=== PATIENT | female | born 1985 | race Caucasian/White ===

== ENCOUNTER 2017-07-09 21:34 | Emergency (ER) | payer MEDICAID ==
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
[2017-07-09 22:29] LABS: CHLORIDE,CL 102 mmol/L (98-107); SODIUM,NA 140 mmol/L (136-145)
[2017-07-10 02:57] VITALS: BP 103/75
== END 2017-07-09 23:45 | disposition home or self-care (01) ==
LOC: LL.ED 21:34
DX: S80.11XA Contusion of right lower leg, initial encounter (principal); S80.12XA Contusion of left lower leg, initial encounter; S80.211A Abrasion, right knee, initial encounter; S90.812A Abrasion, left foot, initial encounter; F17.210 Nicotine dependence, cigarettes, uncomplicated; Z88.8 Allergy status to other drugs, medicaments and biological substances; Y04.0XXA Assault by unarmed brawl or fight, initial encounter
CPT/HCPCS: 36415; 80048; 85025; 85379; 99283

== ENCOUNTER 2017-11-26 13:55 | Emergency (ER) | payer MEDICAID ==
[2017-11-26 14:00] VITALS: BP 97/62
[2017-11-26] MEDS ORDERED: Sodium Chloride 0.9% 10 ML Syringe FLUSH PRN (14:28)
[2017-11-26] MEDS ORDERED: Ondansetron 4 MG/2 ML SDV IVPUSH ONE (14:30)
[2017-11-26] MEDS ORDERED: Sodium Chloride 0.9% 1,000 ML IV SCH (14:30)
[2017-11-26 14:59] LABS: CHLORIDE,CL 100 mmol/L (98-107); SODIUM,NA 138 mmol/L (136-145)
--- NOTE | 2017-11-26 15:53 | EDM.PDOC ---
ED HPI GENERAL MEDICAL PROBLEM - General Chief Complaint: General Stated Complaint: N/V, Fever Time Seen by Provider: 11/26/17 14:00 Source of Information: Reports: Patient History Limitations: Reports: No Limitations - History of Present Illness INITIAL COMMENTS - FREE TEXT/NARRATIVE: Patient is seen with 3 days history of nausea vomiting fever and abdominal cramping she states that she recently started working at [employer]. 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, Neurological History: Reports: Migraines Psychiatric History: Reports: Anxiety - Past Surgical History Cardiovascular Surgical History: Reports: Vascular Surgery GI Surgical History: Reports: Hernia Repair/Other Female Surgical History: Reports: Section, Tubal Ligation Musculoskeletal Surgical History: Reports: Arthroscopic Procedure Social & Family History - Family History Cardiac: Reports: Aneurysm, Heart Valve Replacement Respiratory: Reports: None GI: Reports: None - Tobacco Use Smoking Status *Q: Current Every Day Smoker Years of Tobacco use: 8 Packs/Tins Daily: 0.5 ED ROS GENERAL - Review of Systems Review Of Systems: See Below Constitutional: Reports: Fever, Chills HEENT: Reports: No Symptoms Respiratory: Reports: No Symptoms Cardiovascular: Reports: No Symptoms Endocrine: Reports: No Symptoms GI/Abdominal: Reports: Abdominal Pain : Reports: No Symptoms Musculoskeletal: Reports: No Symptoms Skin: Reports: No Symptoms ED EXAM, GENERAL - Physical Exam Exam: See Below Exam Limited By: No Limitations General Appearance: Alert, WD/WN, No Apparent Distress Ears: Normal External Exam, Normal Canal, Hearing Grossly Normal, Normal TMs Nose: Normal Inspection, Normal Mucosa, No Blood Throat/Mouth: Normal Inspection, Normal Lips, Normal Teeth, Normal Gums, Normal Oropharynx, Normal Voice, No Airway Compromise Head: Atraumatic, Normocephalic Neck: Normal Inspection, Supple, Non-Tender, Full Range of Motion Respiratory/Chest: No Respiratory Distress, Lungs Clear, Normal Breath Sounds, No Accessory Muscle Use, Chest Non-Tender Cardiovascular: Normal Peripheral Pulses, Regular Rate, Rhythm, No Edema, No Gallop, No JVD, No Murmur, No Rub GI/Abdominal: Normal Bowel Sounds, Guarding, Tender (Female) Exam: Normal External Exam, Normal Speculum Exam, Normal Bimanual Exam Rectal (Female) Exam: Deferred Back Exam: Normal Inspection, Full Range of Motion, NT Extremities: Normal Inspection, Normal Range of Motion, Non-Tender, Normal Capillary Refill, No Pedal Edema Neurological: Alert, Oriented, CN II-XII Intact, Normal Cognition, Normal Gait, Normal Reflexes, No Motor/Sensory Deficits Course - Vital Signs Last Recorded V/S: Last Vital Signs Temp 97.7 F 11/26/17 13:55 Pulse 96 11/26/17 13:55 Resp 16 11/26/17 13:55 BP 97/62 11/26/17 13:55 Pulse Ox 100 11/26/17 13:55 - Orders/Labs/Meds Orders: Active Orders 24 hr Category Date Time Status STOOL CULTURE/SHIGA TOXIN [MREF] Stat Lab 11/26/17 15:15 Received Sodium Chloride 0.9% [Normal Saline] 1,000 ml Med 11/26/17 14:30 Active IV ASDIRECTED Sodium Chloride 0.9% [Saline Flush] Med 11/26/17 14:28 Active 10 ml FLUSH ASDIRECTED PRN Saline Lock Insert [OM.PC] Stat Oth 11/26/17 14:29 Ordered Medication Orders Sodium Chloride (Normal Saline) 1,000 mls @ 999 mls/hr IV ASDIRECTED SELVIN Last Admin: 11/26/17 15:06 Dose: 999 mls/hr Sodium Chloride (Saline Flush) 10 ml FLUSH ASDIRECTED PRN PRN Reason: Keep Vein Open Labs: Laboratory Tests 11/26/17 11/26/17 Range/Units 14:39 14:39 WBC 6.2 (4.0-10.2) K/uL RBC 5.28 H (3.77-5.09) M/uL Hgb 15.1 (11.7-15.5) g/dL Hct 43.7 (34.0-46.0) % MCV 82.8 L D (84.0-98.0) fL MCH 28.6 (28.2-33.3) pg MCHC 34.6 (31.7-36.0) g/dL RDW 13.9 (11.2-14.1) % Plt Count 228 D (150-350) K/uL Neut % (Auto) 63.5 (45.0-80.0) % Lymph % (Auto) 24.3 (10.0-50.0) % [place] % (Auto) 11.5 (2.0-14.0) % Eos % (Auto) 0.5 (0.0-5.0) % Baso % (Auto) 0.2 (0.0-2.0) % Neut # (Auto) 3.93 (1.40-7.00) K/uL Lymph # (Auto) 1.50 (0.50-3.50) K/uL [place] # (Auto) 0.71 (0.00-1.00) K/uL Eos # (Auto) 0.03 (0.00-0.50) K/uL Baso # (Auto) 0.01 (0.00-0.20) K/uL Sodium 138 (136-145) mmol/L Potassium 3.4 L (3.5-5.1) mmol/L Chloride 100 (98-107) mmol/L Carbon Dioxide 31.6 (21.0-32.0) mmol/L BUN 10 (7-18) mg/dL Creatinine 0.85 (0.51-1.17) mg/dL Est Cr Clr Drug Dosing 87.30 mL/min Estimated GFR (MDRD) > 60 mL/min Glucose 119 H (74-106) mg/dL Calcium 8.9 (8.5-10.1) mg/dL Meds: Medications Generic Name Dose Route Start Last Admin Trade Name Freq PRN Reason Stop Dose Admin Sodium Chloride 1,000 mls @ 999 mls/hr 11/26/17 14:30 11/26/17 15:06 Normal Saline IV 999 mls/hr ASDIRECTED SELVIN Administration Sodium Chloride 10 ml 11/26/17 14:28 Saline Flush FLUSH ASDIRECTED PRN Keep Vein Open Discontinued Medications Generic Name Dose Route Start Last Admin Trade Name Nathaniel PRN Reason Stop Dose Admin Ondansetron HCl 4 mg 11/26/17 14:30 11/26/17 15:08 Zofran IVPUSH 11/26/17 14:31 4 mg ONETIME ONE Administration Departure - Departure Time of Disposition: 15:53 Disposition: Home, Self-Care 01 Condition: Fair Clinical Impression: Viral gastroenteritis - Discharge Information Referrals: Jared Jeffrey PA-C [Primary Care Provider] - Care Plan Goals: Patient will need to take oral fluids stool samples obtained we'll call with results rest for the next 24 hours and return or call with any problems - My Orders Last 24 Hours: My Active Orders 11/26/17 14:28 Sodium Chloride 0.9% [Saline Flush] 10 ml FLUSH ASDIRECTED PRN 11/26/17 14:29 Saline Lock Insert [OM.PC] Stat 11/26/17 14:30 Sodium Chloride 0.9% [Normal Saline] 1,000 ml IV ASDIRECTED 11/26/17 15:15 STOOL CULTURE/SHIGA TOXIN [MREF] Stat - Assessment/Plan Last 24 Hours: My Active Orders 11/26/17 14:28 Sodium Chloride 0.9% [Saline Flush] 10 ml FLUSH ASDIRECTED PRN 11/26/17 14:29 Saline Lock Insert [OM.PC] Stat 11/26/17 14:30 Sodium Chloride 0.9% [Normal Saline] 1,000 ml IV ASDIRECTED 11/26/17 15:15 STOOL CULTURE/SHIGA TOXIN [MREF] Stat
== END 2017-11-26 16:50 | disposition home or self-care (01) ==
LOC: LL.ED 13:55
DX: A08.4 Viral intestinal infection, unspecified (principal); F17.210 Nicotine dependence, cigarettes, uncomplicated; Z88.8 Allergy status to other drugs, medicaments and biological substances
CPT/HCPCS: 36415; 80048; 82272; 85025; 87045; 87046; 87899; 96361; 96374; 99284; J2405; J7030

== ENCOUNTER 2017-11-30 03:29 | Inpatient (IN) | payer MEDICAID ==
--- NOTE | 2017-11-30 03:58 | EDM.PDOC ---
ED HPI GENERAL MEDICAL PROBLEM - General Chief Complaint: Gastrointestinal Problem Stated Complaint: Nausea, vomiting, diarrhea Time Seen by Provider: 11/30/17 03:50 Source of Information: Reports: Patient, Old Records ([facility]. No paper hospital chart available.) History Limitations: Reports: No Limitations - History of Present Illness INITIAL COMMENTS - FREE TEXT/NARRATIVE: The patient was brought to the emergency room via private automobile by her ex- for evaluation of refractory and progressive nausea, emesis, diarrhea during the last week with no known exposure to infection or food poisoning. The patient was evaluated in this facility on 11/26 with negative Hemoccult and IV fluids given at that time. Patient has had loose watery stools on almost an hourly basis during the last few days with 5 episodes of emesis during the night. Symptoms have been refractory to OTC to this small. She did take Tylenol yesterday morning with maximum fever of 103 3 days ago. Some anorexia with 6/ 10 diffuse abdominal cramping, however no hematemesis, etc. Onset: Gradual Onset Date: 11/23/17 Duration: Constant, Getting Worse Location: Reports: Abdomen, Generalized. Denies: Head, Face, Neck, Chest, Back , Pelvis, Upper Extremity, Left, Upper Extremity, Right, Lower Extremity, Left, Lower Extremity, Right, Radiates to Quality: Reports: Same as Previous Episode, Other (Cramping) Severity: Moderate Improves with: Reports: None Worsens with: Reports: None Context: Reports: Other (As above). Denies: Sick Contact Associated Symptoms: Reports: Fever/Chills, Loss of Appetite, Nausea/Vomiting, Weakness (Generalized secondary to current infection). 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 Denies: Allergic Rhinitis, Hard of Hearing, Impaired Vision, Retinal Detachment Other HEENT History: Nasal fracture in 2008 requiring surgery as below Cardiovascular History: Reports: Syncope. Denies: Afib, Aneurysm, Arrhythmia, Blood Clots/VTE/DVT, CAD, Heart Murmur, High Cholesterol, Hypertension, MT Other Cardiovascular History: Orthostatic hypotension/syncopal episode in 2016 secondary to dehydration. History of hypotension Respiratory History: Reports: Intubation, Previous. Denies: Asthma, COPD, Intubation, Difficult, Pneumothorax, Sleep Apnea Gastrointestinal History: Reports: GERD. Denies: Celiac Disease, Cholelithiasis , Fecal Incontinence, GI Bleed, Hepatitis, Inflammatory Bowel Disease, Irritable Bowel Syndrome, Jaundice, Pancreatitis, PUD Genitourinary History: Reports: UTI, Recurrent. 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 Very irregular menses since uterine ablation frequent spotting including currently. Musculoskeletal History: Reports: Arthritis, Back Pain, Chronic, Fracture, Osteoarthritis, Other (See Below). Denies: Amputation, Gout, Neck Pain, Chronic , RA, SLE Other Musculoskeletal History: Proximal phalangeal fracture of digit #2 at age 5 Neurological History: Reports: Concussion, Headaches, Chronic, Head Trauma, Migraines, Other (See Below). Denies: Cerebral Aneurysms, CVA, MS, Neuropathy, Peripheral, Parkinson's, Seizure, TIA Other Neuro History: Concussion in July 2017 Psychiatric History: Reports: Addiction, Anxiety, Depression, Other (See Below) . Denies: Abuse, Victim of, ADD, ADHD, Psych Hospitalization(s), PTSD, Suicide Attempt, Suicidal Ideation Other Psychiatric History: Illicit drug use as below Endocrine/Metabolic History: Reports: None. Denies: Diabetes, Gestational, Diabetes, Type I, Diabetes, Type II, Hypothyroidism, IDDM, Multinodular Thyroid Hematologic History: Reports: Anemia, Iron Deficiency, Other (See Below). Denies: Blood Transfusion(s) Other Hematologic History: Anemia of and Immunologic History: Reports: None. Denies: AIDS, HIV, SLE Oncologic (Cancer) History: Reports: Cervix, Other (See Below). Denies: Basal Cell Carcinoma, Hodgkin's Lymphoma, Leukemia, Lymphoma, Malignant Melanoma, Non- Hodgkin's Lymphoma, Squamous Cell Carcinoma, Uterine Other Oncologic History: Precancerous Pap smears at age 15 requiring LEEP as below Dermatologic History: Reports: None. Denies: Eczema, Psoriasis - Infectious Disease History Infectious Disease History: Reports: Chicken Pox, Human Papilloma Virus (HPV) ( With abnormal Pap smear as above), Mononucleosis (Age 10). Denies: C-Difficile , Measles, Meningitis, MRSA, Mumps, Pertussis (Whooping Cough), Rheumatic Fever , Rubella, Scarlet Fever, Shingles, TB, VRE - Past Surgical History Head Surgeries/Procedures: Reports: None HEENT Surgical History: Reports: Naso-Sinus Surgery, Oral Surgery, Other (See Below). Denies: Adenoidectomy, Eye Surgery, Laser Surgery, LASIK, Myringotomy w Tube(s), Tonsillectomy Other HEENT Surgeries/Procedures: [place] teeth extraction 4 at age 15. Nasal septum deviation repair with turbinate revision in 2009 Cardiovascular Surgical History: Reports: Varicose Other Cardiovascular Surgeries/Procedures: Radiofrequency ablation of varicose veins the legs bilaterally in 2014 Respiratory Surgical History: Reports: None. Denies: Thoracentesis GI Surgical History: Reports: Hernia, Abdominal, Other (See Below). Denies: Appendectomy, Cholecystectomy, Colonoscopy, EGD, Hernia, Inguinal, Hernia Repair /Other Other GI Surgeries/Procedures: Umbilical hernia repair in 2012 Female Surgical History: Reports: Breast Implant, Breast Reconstruction, Section, Cystoscopy, LEEP, Tubal Ligation, Other (See Below). Denies: D&C, Hysterectomy, Salpingo-Oophorectomy Other Female Surgeries/Procedures: C-sections 4 as above. Bilateral tubal ligation at age 29. LEEP secondary to cervical dysplasia at age 15. Cystoscopy with urethral meatotomy 2011 with previous multiple urethral dilatations. Uterine ablation in 2016 secondary to dysfunctional uterine bleeding. Bilateral breast augmentation 2003. Endocrine Surgical History: Reports: None. Denies: Thyroid Biopsy Neurological Surgical History: Denies: C-Spine, Discectomy, Laminectomy, Lumbar Spine, Sacral Spine, Spinal Fusion, Vertebroplasty Musculoskeletal Surgical History: Reports: Arthroscopic Procedure, Shoulder Surgery, Other (See Below). Denies: Arthroscopic Knee, Carpal Tunnel, Ganglion Cyst, Joint Replacement, ORIF Other Musculoskeletal Surgeries/Procedures:: Right arthroscopic surgery for labrum repair in 2012 Oncologic Surgical History: Reports: None Dermatological Surgical History: Reports: None - Past Imaging History Past Imaging History: Reports: Mammogram (Last 2015), Ultrasound (Multiple Ob Ultrasounds) Social & Family History - Family History HEENT: Reports: None. Denies: Glaucoma, Macular Degeneration, Retinal Detachment Cardiac: Reports: AICD, Aneurysm, Arrhythmia, Bypass, CAD, Cardiomyopathy, Heart Failure, Heart Murmur, Heart Valve Replacement, High Cholesterol, Hypertension, MT, Pacemaker, Stent, Syncope, Other (See Below). Denies: Blood Clots/VTE/DVT Other Cardiac Family History: Maternal grandfather with recurrent MT initially at age 55 with CABG 3 at that time with subsequent pacemaker, AICD, PTCA/stents , and artificial heart valves with history of hypertension and hyperlipidemia. Hyperlipidemia in mother and maternal grandmother. Hypertension in maternal grandmother. Maternal grandfather with syncopal episodes and AAA. Maternal grandmother with DVTs Respiratory: Reports: None. Denies: Asthma, COPD, PE, Pneumothorax, Sleep Apnea GI: Reports: None, Celiac Disease, Irritable Bowel Syndrome, Other (See Below). Denies: Colon Polyps, GERD, GI bleed, PUD Other GI Family History: Maternal grandfather with cholecystectomy. Maternal grandmother with celiac disease and IBS. : Reports: Renal Disease/Insufficiency, Other (See Below). Denies: Dialysis, Renal Calculus Other Family History: Maternal grandfather with renal insufficiency OBGYN: Reports: None. Denies: Endometriosis, Recurrent Spontaneous Musculoskeletal: Reports: None. Denies: Gout, RA, SLE Neurological: Reports: CVA, Migraines, Other (See Below). Denies: Alzheimers Disease, Cerebral Aneurysms, Dementia, Seizure, TIA Other Neurological Family History: Migraine headaches in mother and maternal grandmother. Maternal grandfather with recurrent CVAs Psychiatric: Reports: ADD, ADHD, Anxiety, Other (See Below). Denies: Abuse, Victim of, Depression, Psych Hospitalization(s), PTSD, Suicide Attempt Other Psychiatric Family History: Son with ADHD and autism. Daughter with anxiety. 2 brothers with ADHD Endocrine/Metabolic: Reports: Diabetes, type II, Hypothyroidism, IDDM, Multinodular Thyroid, Other (See Below). Denies: Diabetes, Type I Other Endocrine/Metabolic Family History: Maternal uncle with thyroidectomy secondary to goiter. Maternal grandmother and maternal aunt with hypothyroidism. Paternal grandfather with IDDM Hematologic: Denies: Anemia, SLE, Transfusion Reaction Immunologic: Reports: None. Denies: AIDS, HIV, SLE Dermatologic: Reports: None. Denies: Eczema, Psoriasis Oncologic: Reports: Metastatic, Skin, Other (See Below). Denies: Breast, Colon , Hodgkin's Lymphoma, Leukemia, Lymphoma, Non-Hodgkin's Lymphoma, Ovarian, Uterine Other Oncologic Family History: Maternal great grandmother with unknown type of fatal metastatic cancer in her 40s. Maternal grandfather with melanoma. - Tobacco Use Smoking Status *Q: Current Every Day Smoker Tobacco Use Within Last Twelve Months: Cigarettes Years of Tobacco use: 22 Packs/Tins Daily: 0.5 Packs/Tins Daily Comment: Smoking at age 10 with maximum use of one pack per day Used Tobacco, but Quit: Yes Smoking Cessation Information Provided To Patient: Yes Second Hand Smoke Exposure: No Second Hand Smoke Education Provided: No - Caffeine Use Caffeine Use: Reports: Coffee (6 cups per day), Soda (1 soda per day), Tea (2 cups per week). Denies: Energy Drinks - Alcohol Use Alcohol Use History: Yes Days Per Week of Alcohol Use: 0 (No previous DWIs, problems with alcohol abuse, etc.) Number of Drinks Per Day: 2 (Usually mixed drinks every couple of weeks) Total Drinks Per Week: 0 Alcohol Use in Last Twelve Months: Yes Alcohol Use Frequency: Socially - Recreational Drug Use Recreational Drug Use: Yes Drug Use in Last 12 Months: Yes Recreational Drug Type: Reports: Cocaine (Cocaine since her 20s with last use on 08/09/17), Marijuana/Hashish (Marijuana use between ages 14 and 18). Denies: Amphetamines (Speed), Heroin, Inhalants (Glues, Solvents, Aerosols), LSD (Acid) , Methamphetamine, Morphine, Oxycodone - Living Situation & Occupation Living situation: Reports: (2009, 4 children, currently in divorce proceedings) Occupation: Employed ([employer] about to be employed at [employer] in [place]) ED ROS GENERAL - Review of Systems Review Of Systems: See Below Constitutional: Reports: Fever, Chills, Weakness, Decreased Appetite. Denies: Diaphoresis, Weight Loss HEENT: Reports: No Symptoms. Denies: Contact Lenses, Dental Pain, Ear Discharge , Ear Pain, Glasses, Nosebleed, Rhinitis, Sinus Problem, Throat Pain, Throat Swelling, Vertigo, Vision Change Respiratory: Reports: No Symptoms. Denies: Shortness of Breath, Wheezing, Pleuritic Chest Pain, Cough Cardiovascular: Reports: Lightheadedness. Denies: Chest Pain, Blood Pressure Problem, Dyspnea on Exertion, Edema, Orthopnea, Palpitations, PND, Syncope Endocrine: Reports: No Symptoms. Denies: Fatigue GI/Abdominal: Reports: Abdominal Pain, Anorexia, Diarrhea, Decreased Appetite, Nausea, Stool Incontinence, Vomiting. Denies: Black Stool, Bloody Stool, Constipation, Difficulty Swallowing, Distension, Flatus, Hematemesis, Hematochezia, Melena, Mucous in Stool : Reports: Frequency, Irregular Menses (Current menses), Urgency. Denies: Discharge, Dysuria, Flank Pain, Hematuria, Incontinence, Pain, Urinary Retention Musculoskeletal: Reports: No Symptoms. Denies: Neck Pain, Shoulder Pain, Arm Pain, Back Pain, Leg Pain Skin: Reports: No Symptoms. Denies: Cyanosis, Pallor, Diaphoresis, Bruising, Wound Neurological: Reports: Dizziness, Weakness. Denies: Confusion, Headache, Numbness, Paresthesia, Seizure, Tingling Psychiatric: Reports: No Symptoms. Denies: Agitation, Anxiety, Confusion, Depression, Hallucinations Hematologic/Lymphatic: Reports: No Symptoms Immunologic: Reports: No Symptoms ED EXAM, GI/ABD - Physical Exam Exam: See Below Exam Limited By: No Limitations General Appearance: Alert, WD/WN, No Apparent Distress, Anxious (Mild) Eyes: Bilateral: Normal Appearance (No nystagmus), EOMI (PERRLA) Ears: Normal External Exam, Normal Canal, Hearing Grossly Normal, Normal TMs Nose: Normal Inspection, Normal Mucosa, No Blood Throat/Mouth: Normal Lips, Normal Teeth, Normal Gums, Normal Voice, No Airway Compromise. No: Normal Oropharynx (Dry oral mucosa), Dysphagia, Perioral Cyanosis Head: Atraumatic, Normocephalic. No: Facial Swelling, Facial Tenderness, Sinus Tenderness Neck: Normal Inspection, Supple, Non-Tender, Full Range of Motion. No: Carotid Bruit, Lymphadenopathy (L), Lymphadenopathy (R), Thyromegaly Respiratory/Chest: No Respiratory Distress, Lungs Clear, Normal Breath Sounds, No Accessory Muscle Use, Chest Non-Tender. No: Pleural Rub, Retractions Cardiovascular: Normal Peripheral Pulses, Regular Rate, Rhythm, No Edema, No Gallop, No JVD, No Murmur, No Rub. No: Gallop/S3, Gallop/S4, Friction Rub GI/Abdominal Exam: No Organomegaly, No Distention, No Abnormal Bruit, No Mass, Tender (Mild diffuse palpation.), Abnormal Bowel Sounds (Mildly increased however not high-pitched in nature). No: Guarding, Rebound (Female) Exam: Deferred Rectal (Female) Exam: Deferred Back Exam: Normal Inspection, Full Range of Motion. No: CVA Tenderness (L), CVA Tenderness (R), Muscle Spasm Extremities: Normal Inspection, Normal Range of Motion, Non-Tender, Normal Capillary Refill, No Pedal Edema Neurological: Alert, Oriented, CN II-XII Intact, Normal Cognition, Normal Gait, Normal Reflexes (Negative Babinski's), No Motor/Sensory Deficits Psychiatric: Anxious (Mild), Depressed Mood (Mild). No: Tearful Skin Exam: Warm, Dry, Intact, Normal Color, No Rash. No: Diaphoretic, Ecchymosis, Jaundice, Pallor, Petechiae, Wound/Incision Lymphatic: No Adenopathy Course - Vital Signs Last Recorded V/S: Last Vital Signs Temp 38.1 C 11/30/17 05:12 Pulse 93 11/30/17 05:12 Resp 18 11/30/17 05:12 BP 118/62 11/30/17 05:12 Pulse Ox 100 11/30/17 05:12 Vital Signs - 24 hr 11/30/17 03:50 Temperature [ 37.3 C Temporal] Pulse, 92 Peripheral [ Pulse Oximetry] Respiratory 16 Rate Blood Pressure 94/50 L [Right Upper Arm] O2 Sat by Pulse 100 Oximetry - Orders/Labs/Meds Orders: Active Orders 24 hr Category Date Time Status Peripheral IV Care [RC] . DIRECTED Care 11/30/17 03:59 Active Sodium Chloride 0.9% [Saline Flush] Med 11/30/17 03:58 Active 10 ml FLUSH ASDIRECTED PRN Obtain Past Medical Record [OM.PC] Routine Oth 11/30/17 03:58 Active Peripheral IV Insertion Adult [OM.PC] Routine Oth 11/30/17 03:58 Ordered Medication Orders Acetaminophen (Tylenol) 650 mg PO Q4H PRN PRN Reason: Pain (Mild 1-3)/fever Last Admin: 11/30/17 05:16 Dose: 650 mg Sodium Chloride (Saline Flush) 10 ml FLUSH ASDIRECTED PRN PRN Reason: Keep Vein Open Last Admin: 11/30/17 05:07 Dose: 10 ml Labs: Shortly after admission Meds: Medications Generic Name Dose Route Start Last Admin Trade Name Freq PRN Reason Stop Dose Admin Acetaminophen 650 mg 11/30/17 05:14 11/30/17 05:16 Tylenol PO 650 mg Q4H PRN Administration Pain (Mild 1-3)/fever Sodium Chloride 10 ml 11/30/17 03:58 11/30/17 05:07 Saline Flush FLUSH 10 ml ASDIRECTED PRN Administration Keep Vein Open Discontinued Medications Generic Name Dose Route Start Last Admin Trade Name Freq PRN Reason Stop Dose Admin Famotidine 40 mg 11/30/17 05:01 11/30/17 05:07 Pepcid IVPUSH 11/30/17 05:02 40 mg ONETIME ONE Administration Lactated Ringer's 1,000 mls @ 999 mls/hr 11/30/17 03:59 11/30/17 04:08 Ringers, Lactated IV 11/30/17 04:59 999 mls/hr .BOLUS ONE Administration Loperamide HCl 4 mg 11/30/17 05:00 11/30/17 05:07 Imodium Ad PO 11/30/17 05:01 4 mg ONETIME ONE Administration Metoclopramide HCl 10 mg 11/30/17 04:50 11/30/17 05:04 Reglan IVPUSH 11/30/17 04:51 10 mg ONETIME ONE Administration - Radiology Interpretation Free Text/Narrative:: Shortly after admission Departure - Departure Time of Disposition: 05:20 Disposition: Admitted As Inpatient 64 Condition: Good Clinical Impression: Abdominal pain, Nausea and vomiting, Dehydration, Tobacco abuse counseling, Illicit drug use, Peptic reflux disease, Mixed anxiety depressive disorder - Discharge Information - Problem List & Annotations (1) Abdominal pain SNOMED Code(s): 67459071 Code(s): R10.9 - UNSPECIFIED ABDOMINAL PAIN Status: Acute Priority: High Current Visit: Yes Onset Date: ~11/23/17 Annotation/Comment:: Secondary to refractory symptoms patient will be admitted to acute care. IV lactated Ringer bolus initiated in the emergency room. Urine specimen for UA and urine culture collected in the emergency room. In addition, stool specimen also collected for Hemoccult C. difficile, ova, parasites. High-dose IV Pepcid given in the emergency room with additional IV Protonix shortly after admission. IV Reglan and oral Imodium also given. Suspect refractory viral gastroenteritis with no known exposure to infection or food poisoning. Blood work and x-rays to be conducted shortly after admission. Qualifiers: Abdominal location: generalized Qualified Code(s): R10.84 - Generalized abdominal pain (2) Nausea and vomiting SNOMED Code(s): 04439493 Code(s): R11.2 - NAUSEA WITH VOMITING, UNSPECIFIED Status: Acute Priority : High Current Visit: Yes Onset Date: ~11/23/17 Annotation/Comment:: As above Qualifiers: Vomiting type: unspecified Vomiting Intractability: non-intractable Qualified Code(s): R11.2 - Nausea with vomiting, unspecified (3) Dehydration SNOMED Code(s): 79405157 Code(s): E86.0 - DEHYDRATION Status: Acute Priority: High Current Visit : Yes Onset Date: 11/30/17 Annotation/Comment:: IV lactated Ringer's as above with continuation of IV fluids during the initial phases of hospitalization (4) Peptic reflux disease SNOMED Code(s): 053362351 Code(s): K21.9 - GASTRO-ESOPHAGEAL REFLUX DISEASE WITHOUT ESOPHAGITIS Status: Chronic Priority: Medium Current Visit: Yes Annotation/Comment:: As above (5) Illicit drug use SNOMED Code(s): 040473201 Code(s): F19.90 - OTHER PSYCHOACTIVE SUBSTANCE USE, UNSPECIFIED, UNCOMPLICATED Status: Chronic Priority: Medium Current Visit: Yes Annotation/Comment:: Discontinuation advisable (6) Mixed anxiety depressive disorder SNOMED Code(s): 983133877 Code(s): F41.8 - OTHER SPECIFIED ANXIETY DISORDERS Status: Chronic Priority: Medium Current Visit: Yes Annotation/Comment:: Moderate control by clinical exam. Continue to observe closely by her regular providers (7) Tobacco abuse counseling SNOMED Code(s): 699907947, 023258194, [id number] Code(s): Z71.6 - TOBACCO ABUSE COUNSELING Status: Chronic Priority: Medium Current Visit: Yes Annotation/Comment:: Stop all tobacco use LILO as directed/per provided information and consider contacting [facility], etc.. Tobacco cessation information can be given at discharge - Problem List Review Problem List Initiated/Reviewed/Updated: Yes - My Orders Last 24 Hours: My Active Orders 11/30/17 03:58 Sodium Chloride 0.9% [Saline Flush] 10 ml FLUSH ASDIRECTED PRN Obtain Past Medical Record [OM.PC] Routine Peripheral IV Insertion Adult [OM.PC] Routine 11/30/17 03:59 Peripheral IV Care [RC] . DIRECTED - Assessment/Plan Admission H&P: Please use this note as an admission H&P Last 24 Hours: My Active Orders 11/30/17 03:58 Sodium Chloride 0.9% [Saline Flush] 10 ml FLUSH ASDIRECTED PRN Obtain Past Medical Record [OM.PC] Routine Peripheral IV Insertion Adult [OM.PC] Routine 11/30/17 03:59 Peripheral IV Care [RC] . DIRECTED Assessment:: As above Plan: As above. Extensive precautions were given to the patient, who is in agreement with the treatment plan. The patient will require about 3-4 days of inpatient/ acute care secondary to multiple health problems as above.
[2017-11-30] MEDS ORDERED: Lactated Ringers 1,000 ML IV ONE ×2 (03:59→13:36)
[2017-11-30] MEDS ORDERED: Acetaminophen 650 MG Supp RECTAL PRN (04:49)
[2017-11-30] MEDS ORDERED: Metoclopramide 10 MG/2 ML SDV IVPUSH ONE (04:50)
[2017-11-30] MEDS ORDERED: Loperamide 1 MG/5 ML Soln 5 ML UD Cup PO ONE (04:51)
[2017-11-30] MEDS ORDERED: Loperamide 2 MG Tab PO ONE (05:00)
[2017-11-30] MEDS ORDERED: Famotidine 20 MG/2 ML SDV IVPUSH ONE (05:01)
[2017-11-30] MEDS: Sodium Chloride 0.9% 10 ML Syringe FLUSH PRN ×6 (05:07→16:37)
[2017-11-30] MEDS: Acetaminophen 325 MG Tab PO PRN ×3 (05:16→22:06)
[2017-11-30] MEDS ORDERED: Ondansetron 4 MG/2 ML SDV IVPUSH PRN (05:23)
[2017-11-30] MEDS: Ciprofloxacin in D5W 200 MG in Premix Bag 1 BAG IV SCH ×4 (05:39→16:32)
[2017-11-30] MEDS: Pantoprazole 40 MG Vial IVPUSH SCH ×2 (06:50→16:32)
[2017-11-30] MEDS: metroNIDAZOLE/Normal Saline 500 MG in Premix Bag 1 BAG IV SCH ×3 (06:50→20:51)
[2017-11-30 07:40] LABS: CHLORIDE,CL 103 mmol/L (98-107); SODIUM,NA 140 mmol/L (136-145)
[2017-11-30] MEDS: D5 1/2 NS w/ 20 mEq/L KCl 1,000 ML IV SCH ×2 (08:10→21:04)
[2017-11-30] MEDS: FLUoxetine 20 MG Cap PO SCH (08:14)
[2017-11-30] MEDS: Sodium Chloride 0.9% 10 ML Syringe FLUSH SCH ×2 (08:14→20:58)
--- NOTE | 2017-11-30 08:55 | PCM.SN ---
- Free Text/Narrative Note: Blood work and abdominal x-rays from earlier this morning were reviewed. Acute abdominal x-rays shows evidence of moderate pulmonary obstructive disease without cardiomegaly, CHF, pulmonary infiltrates, free air, ileus, obstruction, pneumothorax, etc.. Mildly elevated right hemidiaphragm with some atelectasis noted in the right middle lobe. Mildly increased nonspecific bowel gaseous pattern particularly in the colon. Blood work showed normal WBCs with mild left shift. Potassium decreased to 2.9 with initiation of additional oral potassium chloride supplementation this morning. Her albumin and total protein were also decreased with initiation of high protein Glucerna supplements on a twice a day basis this morning. Attempt to initiate bland diet this morning. UA did not show any evidence of acute infection with negative urine drug screen. Urine culture and sensitivity pending. Additional evaluation for celiac panel secondary to positive family history for celiac disease to be conducted from this mornings blood draw. Hemoccult of stool is negative with stool specimen sent out for culture, etc.. Note mildly decreased calcium and magnesium levels with no initiation of magnesium oxide therapy for now secondary to patient's diarrhea. Gabe thomas physician assumes care in the a.m. Probable hospital discharge within the next 2-3 days.
[2017-11-30] MEDS: Potassium Chloride 20 MEQ Tab.ER PO SCH ×3 (09:01→17:38)
[2017-11-30] MEDS: Loperamide 2 MG Tab PO PRN ×2 (15:23→22:06)
[2017-11-30] MEDS: Temazepam 15 MG Cap PO PRN (22:06)
[2017-12-01] MEDS: Temazepam 15 MG Cap PO PRN ×2 (04:05→20:42)
[2017-12-01] MEDS: metroNIDAZOLE/Normal Saline 500 MG in Premix Bag 1 BAG IV SCH ×3 (05:14→20:42)
[2017-12-01] MEDS: Ciprofloxacin in D5W 200 MG in Premix Bag 1 BAG IV SCH ×2 (05:14)
[2017-12-01] MEDS: Famotidine 20 MG/2 ML SDV IVPUSH SCH ×2 (05:14→18:01)
[2017-12-01] MEDS: Pantoprazole 40 MG Vial IVPUSH SCH ×2 (05:14→18:01)
[2017-12-01] MEDS: Sodium Chloride 0.9% 10 ML Syringe FLUSH PRN ×5 (05:15→21:59)
[2017-12-01] MEDS ORDERED: Pantoprazole 40 MG Vial IVPUSH SCH (05:23)
[2017-12-01 07:35] LABS: CHLORIDE,CL 108 mmol/L (98-107); SODIUM,NA 141 mmol/L (136-145)
[2017-12-01] MEDS: FLUoxetine 20 MG Cap PO SCH (08:16)
[2017-12-01] MEDS: Sodium Chloride 0.9% 10 ML Syringe FLUSH SCH ×2 (08:16→20:43)
[2017-12-01] MEDS: Potassium Chloride 20 MEQ Tab.ER PO SCH ×3 (08:16→18:00)
[2017-12-01] MEDS: D5 1/2 NS w/ 20 mEq/L KCl 1,000 ML IV SCH ×2 (08:22→18:15)
[2017-12-01] MEDS ORDERED: TERCONAZOLE 0.4% VAG PRN (12:35)
[2017-12-01] MEDS ORDERED: Simethicone 125 MG Tab.Chew PO PRN (14:35)
--- NOTE | 2017-12-01 18:25 | PCM.PN ---
- General Info Date of Service: 12/01/17 Admission Dx/Problem (Free Text): Nausea/vomiting/loose stools/dehydration, hypokalemia Subjective Update: Feeling improved overall. Single loose bowel movement today. No emesis at this time. Functional Status: Reports: Pain Controlled, Tolerating Diet, Ambulating, Urinating. Denies: New Symptoms - Review of Systems General: Reports: Fatigue. Denies: Fever, Appetite HEENT: Reports: No Symptoms Pulmonary: Reports: No Symptoms Cardiovascular: Reports: No Symptoms Gastrointestinal: Reports: Diarrhea, Nausea. Denies: Abdominal Pain, Vomiting Genitourinary: Reports: No Symptoms Musculoskeletal: Reports: No Symptoms Skin: Reports: No Symptoms Neurological: Reports: No Symptoms Psychiatric: Reports: No Symptoms - Patient Data Vitals - Most Recent: Last Vital Signs Temp 37.0 C 12/01/17 16:00 Pulse 77 12/01/17 16:00 Resp 16 12/01/17 12:00 BP 109/50 L 12/01/17 16:00 Pulse Ox 100 12/01/17 16:00 Weight - Most Recent: 62.006 kg I&O - Last 24 Hours: Intake & Output 12/01/17 12/01/17 12/01/17 06:59 14:59 22:59 Intake Total 1416 2259 1072 Output Total 400 1900 400 Balance 1016 139 672 Lab Results Last 24 Hours: Laboratory Results - last 24 hr 12/01/17 12/01/17 12/01/17 Range/Units 06:28 06:28 06:28 WBC 4.5 (4.0-10.2) K/uL RBC 4.01 (3.77-5.09) M/uL Hgb 11.4 L (11.7-15.5) g/dL Hct 34.3 (34.0-46.0) % MCV 85.5 (84.0-98.0) fL MCH 28.4 (28.2-33.3) pg MCHC 33.2 (31.7-36.0) g/dL RDW 13.9 (11.2-14.1) % Plt Count 301 (150-350) K/uL Neut % (Auto) 33.0 L (45.0-80.0) % Lymph % (Auto) 50.4 H (10.0-50.0) % [place] % (Auto) 13.7 (2.0-14.0) % Eos % (Auto) 2.7 (0.0-5.0) % Baso % (Auto) 0.2 (0.0-2.0) % Neut # (Auto) 1.47 (1.40-7.00) K/uL Lymph # (Auto) 2.25 (0.50-3.50) K/uL [place] # (Auto) 0.61 (0.00-1.00) K/uL Eos # (Auto) 0.12 (0.00-0.50) K/uL Baso # (Auto) 0.01 (0.00-0.20) K/uL Sodium 141 (136-145) mmol/L Potassium 3.3 L (3.5-5.1) mmol/L Chloride 108 H (98-107) mmol/L Carbon Dioxide 29.1 (21.0-32.0) mmol/L BUN 4 L (7-18) mg/dL Creatinine 0.65 (0.51-1.17) mg/dL Est Cr Clr Drug Dosing 113.52 mL/min Estimated GFR (MDRD) > 60 mL/min Glucose 85 (74-106) mg/dL Lactic Acid 0.7 (0.4-2.0) mmol/L Calcium 7.0 L (8.5-10.1) mg/dL [place] Results Last 24 Hours: Microbiology 11/30/17 04:30 Clostridium difficile (PCR) - Final Stool / Feces 11/30/17 04:30 Shiga Toxin I & II - Final Stool / Feces 11/30/17 04:30 Cryptosporidium/Giardia - Final Stool / Feces 11/30/17 04:30 Urine Culture - Preliminary Urine, Clean Catch NO GROWTH AFTER 1 DAY Med Orders - Current: Current Medications Acetaminophen (Tylenol) 650 mg PO Q4H PRN PRN Reason: Pain (Mild 1-3)/fever Last Admin: 11/30/17 22:06 Dose: 650 mg Famotidine (Pepcid) 20 mg IVPUSH Q12H [facility] Last Admin: 12/01/17 18:01 Dose: 20 mg Fluoxetine HCl (Prozac) 20 mg PO DAILY [facility] Last Admin: 12/01/17 08:16 Dose: 20 mg Potassium Chloride/Dextrose/Sod Cl (D5 1/2 Ns W/ 20 Meq/L Kcl) 1,000 mls @ 125 mls/hr IV ASDIRECTED [facility] Last Admin: 12/01/17 18:15 Dose: 125 mls/hr Metronidazole 500 mg/ Premix 100 mls @ 100 mls/hr IV Q8H [facility] Last Admin: 12/01/17 12:38 Dose: 100 mls/hr Loperamide HCl (Imodium Ad) 2 mg PO Q6H PRN PRN Reason: Diarrhea Last Admin: 11/30/17 22:06 Dose: 2 mg Ondansetron HCl (Zofran) 4 mg IVPUSH Q6H PRN PRN Reason: Nausea/Vomiting Pantoprazole Sodium (Protonix Iv) 40 mg IVPUSH Q12H [facility] Last Admin: 12/01/17 18:01 Dose: 40 mg Potassium Chloride (Klor-Con M20) 20 meq PO TID [facility] Last Admin: 12/01/17 18:00 Dose: 20 meq Simethicone (Simethicone) 125 mg PO QID PRN PRN Reason: Gas Last Admin: 12/01/17 15:55 Dose: 125 mg Sodium Chloride (Saline Flush) 10 ml FLUSH ASDIRECTED PRN PRN Reason: Keep Vein Open Last Admin: 12/01/17 18:03 Dose: 10 ml Sodium Chloride (Saline Flush) 10 ml FLUSH Q12HR [facility] Last Admin: 12/01/17 08:16 Dose: 10 ml Temazepam (Restoril) 15 mg PO DAILY@2000 PRN PRN Reason: Insomnia Last Admin: 12/01/17 04:05 Dose: 15 mg Terconazole (Terazol 7 Vaginal Crm) 0 gm VAG BEDTIME PRN PRN Reason: Itching Discontinued Medications Famotidine (Pepcid) 40 mg IVPUSH ONETIME ONE Stop: 11/30/17 05:02 Last Admin: 11/30/17 05:07 Dose: 40 mg Lactated Ringer's (Ringers, Lactated) 1,000 mls @ 999 mls/hr IV .BOLUS ONE Stop: 11/30/17 04:59 Last Admin: 11/30/17 04:08 Dose: 999 mls/hr Ciprofloxacin/Dextrose 200 mg/ (Premix) 100 mls @ 100 mls/hr IV Q12H [facility] Last Admin: 12/01/17 05:14 Dose: 100 mls/hr Lactated Ringer's (Ringers, Lactated) 1,000 mls @ 999 mls/hr IV .BOLUS ONE Stop: 11/30/17 14:36 Last Admin: 11/30/17 13:56 Dose: 999 mls/hr Loperamide HCl (Imodium Ad) 4 mg PO ONETIME ONE Stop: 11/30/17 05:01 Last Admin: 11/30/17 05:07 Dose: 4 mg Metoclopramide HCl (Reglan) 10 mg IVPUSH ONETIME ONE Stop: 11/30/17 04:51 Last Admin: 11/30/17 05:04 Dose: 10 mg Pantoprazole Sodium (Protonix Iv) 40 mg IVPUSH Q12H [facility] - Exam General: Alert, Oriented, Cooperative, No Acute Distress HEENT: Pupils Equal, Pupils Reactive, EOMI, Mucous Membr. Moist/[place] Neck: Supple Lungs: Clear to Auscultation, Normal Respiratory Effort Cardiovascular: Regular Rate, Regular Rhythm GI/Abdominal Exam: Normal Bowel Sounds, Soft, No Abnormal Bruit, Tender ( minimally uncomfortable with palpation central abdomen), Other (mild gaseous distension) (Female) Exam: Deferred Back Exam: Normal Inspection. No: CVA Tenderness (L), CVA Tenderness (R) Extremities: Normal Inspection, Normal Range of Motion, Non-Tender, No Pedal Edema, Normal Capillary Refill Peripheral Pulses: 2+: Radial (L), Radial (R), Dorsalis Pedis (L), Dorsalis Pedis (R) Skin: Warm, Dry, Intact Neurological: No New Focal Deficit Psy/Mental Status: Alert, Normal Affect, Normal Mood - Problem List & Annotations (1) Abdominal pain SNOMED Code(s): 26876595 Code(s): R10.9 - UNSPECIFIED ABDOMINAL PAIN Status: Acute Priority: High Current Visit: Yes Onset Date: ~11/23/17 Qualifiers: Abdominal location: generalized Qualified Code(s): R10.84 - Generalized abdominal pain Annotation/Comment:: Improving. No vomiting today. Single loose stool prior to rounding on patient. Urine culture collected in the emergency room unremarkable at this time. In addition, stool specimen also collected for Hemoccult C. difficile, ova, parasites unremarkable. High-dose IV Pepcid given in the emergency room with additional IV Protonix shortly after admission. IV Reglan and oral Imodium also given. Suspect refractory viral gastroenteritis with no known exposure to infection or food poisoning. Patient notes that all over her children have now had some variant of it over the past few days with loose stools/GI discomfort, and emesis. Due to negative CDiff studies/other unremarkable labs, Cipro discontinued this morning. Flagyl however has been continued for now. (2) Dehydration SNOMED Code(s): 09342410 Code(s): E86.0 - DEHYDRATION Status: Acute Priority: High Current Visit : Yes Onset Date: 11/30/17 Annotation/Comment:: IV lactated Ringer's as above with continuation of IV fluids during the initial phases of hospitalization (3) Nausea and vomiting SNOMED Code(s): 62509969 Code(s): R11.2 - NAUSEA WITH VOMITING, UNSPECIFIED Status: Acute Priority : High Current Visit: Yes Onset Date: ~11/23/17 Qualifiers: Vomiting type: unspecified Vomiting Intractability: non-intractable Qualified Code(s): R11.2 - Nausea with vomiting, unspecified Annotation/Comment:: As above (4) Illicit drug use SNOMED Code(s): 072591605 Code(s): F19.90 - OTHER PSYCHOACTIVE SUBSTANCE USE, UNSPECIFIED, UNCOMPLICATED Status: Chronic Priority: Medium Current Visit: Yes Annotation/Comment:: Discontinuation advisable (5) Mixed anxiety depressive disorder SNOMED Code(s): 922759209 Code(s): F41.8 - OTHER SPECIFIED ANXIETY DISORDERS Status: Chronic Priority: Medium Current Visit: Yes Annotation/Comment:: Moderate control by clinical exam. Continue to observe closely by her regular providers (6) Peptic reflux disease SNOMED Code(s): 863464015 Code(s): K21.9 - GASTRO-ESOPHAGEAL REFLUX DISEASE WITHOUT ESOPHAGITIS Status: Chronic Priority: Medium Current Visit: Yes Annotation/Comment:: As above (7) Tobacco abuse counseling SNOMED Code(s): 210126279, [id number], 381225827 Code(s): Z71.6 - TOBACCO ABUSE COUNSELING Status: Chronic Priority: Medium Current Visit: Yes Annotation/Comment:: Stop all tobacco use LILO as directed/per provided information and consider contacting [facility], etc.. Tobacco cessation information can be given at discharge - Problem List Review Problem List Initiated/Reviewed/Updated: Yes - My Orders Last 24 Hours: My Active Orders 12/01/17 12:35 Terconazole [Terazol 7 Vaginal Crm] 0 gm VAG BEDTIME PRN 12/01/17 14:35 Simethicone 125 mg PO QID PRN 12/02/17 05:15 BASIC METABOLIC PANEL,BMP [CHEM] AM - Assessment Assessment:: Improving overall. - Plan Plan:: Will continue IV fluids and advance diet as tolerated. Anticipate probable discharge home tomorrow morning. Repeat BMP in AM.
[2017-12-02] MEDS: Temazepam 15 MG Cap PO PRN (02:20)
[2017-12-02] MEDS: Sodium Chloride 0.9% 10 ML Syringe FLUSH PRN ×3 (02:20→05:01)
[2017-12-02] MEDS: D5 1/2 NS w/ 20 mEq/L KCl 1,000 ML IV SCH (03:49)
[2017-12-02] MEDS: metroNIDAZOLE/Normal Saline 500 MG in Premix Bag 1 BAG IV SCH (04:58)
[2017-12-02] MEDS: Pantoprazole 40 MG Vial IVPUSH SCH (04:58)
[2017-12-02] MEDS: Famotidine 20 MG/2 ML SDV IVPUSH SCH (05:00)
[2017-12-02] MEDS: Potassium Chloride 20 MEQ Tab.ER PO SCH ×2 (07:34→13:25)
[2017-12-02] MEDS: FLUoxetine 20 MG Cap PO SCH (07:34)
[2017-12-02] MEDS: Sodium Chloride 0.9% 10 ML Syringe FLUSH SCH (07:35)
[2017-12-02 07:49] LABS: CHLORIDE,CL 106 mmol/L (98-107); SODIUM,NA 139 mmol/L (136-145)
[2017-12-02 10:20] VITALS: BP 101/64
--- NOTE | 2017-12-02 10:56 | PCM.DCSUM1 ---
Discharge Summary - Hospital Course HPI Initial Comments: See emergency room note/admission H&P Brief History: See emergency room note/admission H&P - Discharge Data Discharge Date: 12/02/17 Discharge Disposition: Home, Self-Care 01 Condition: Good - Discharge Diagnosis/Problem(s) (1) Abdominal pain SNOMED Code(s): 36709625 ICD Code: R10.9 - UNSPECIFIED ABDOMINAL PAIN Status: Acute Priority: High Current Visit: Yes Onset Date: ~11/23/17 Problem Details: Resolution of diarrhea since yesterday with no bowel movement yet this morning. Persistent nonspecific diffuse generalized 7/10 abdominal pain and cramping of unknown etiology. Hemoccult and stool specimens for culture and sensitivity, etc. are all negative to this point as below. Patient is tolerating her diet well with no nausea and emesis. She has been off of school since 11/23 with school excuse provided since that time and for an additional week secondary to some persistent symptoms him although she may return earlier, if she feels better. Close follow-up by her regular provider as per discharge instructions with possible further GI workup, including EGD, colonoscopy, CT scans, abdominal ultrasounds, etc.. High-dose IV Pepcid was given in the emergency room with additional IV Protonix shortly after admission. IV Reglan and oral Imodium also given. Suspect refractory viral gastroenteritis with no known exposure to infection or food poisoning. Patient noted yesterday to the [facility] physician that all of her children have now had some variant of the same symptoms. Continue Flagyl oral regimen with additional probiotics for now. Qualifiers: Abdominal location: generalized Qualified Code(s): R10.84 - Generalized abdominal pain (2) Nausea and vomiting SNOMED Code(s): 57759595 ICD Code: R11.2 - NAUSEA WITH VOMITING, UNSPECIFIED Status: Acute Priority: High Current Visit: Yes Onset Date: ~11/23/17 Problem Details: Resolved Qualifiers: Vomiting type: unspecified Vomiting Intractability: non-intractable Qualified Code(s): R11.2 - Nausea with vomiting, unspecified (3) Dehydration SNOMED Code(s): 59026633 ICD Code: E86.0 - DEHYDRATION Status: Acute Priority: High Current Visit: Yes Onset Date: 11/30/17 Problem Details: Aggressive IV hydration during this hospitalization including 2 L boluses of lactated Ringer's and additional IV fluids. Dehydration resolved at time of discharge. (4) Peptic reflux disease SNOMED Code(s): 280252307 ICD Code: K21.9 - GASTRO-ESOPHAGEAL REFLUX DISEASE WITHOUT ESOPHAGITIS Status: Chronic Priority: Medium Current Visit: Yes Problem Details: As above (5) Illicit drug use SNOMED Code(s): 320897213 ICD Code: F19.90 - OTHER PSYCHOACTIVE SUBSTANCE USE, UNSPECIFIED, UNCOMPLICATED Status: Chronic Priority: Medium Current Visit: Yes Problem Details: Discontinuation advisable as per discharge instructions. Note negative urine drug screen on admission (6) Mixed anxiety depressive disorder SNOMED Code(s): 986061242 ICD Code: F41.8 - OTHER SPECIFIED ANXIETY DISORDERS Status: Chronic Priority: Medium Current Visit: Yes Problem Details: Moderate control by clinical exam. Continue to observe closely by her regular providers (7) Tobacco abuse counseling SNOMED Code(s): 849829263, 223788389, 050277439 ICD Code: Z71.6 - TOBACCO ABUSE COUNSELING Status: Chronic Priority: Medium Current Visit: Yes Problem Details: Stop all tobacco use LILO as directed/per provided information and consider contacting [employer] [facility], etc.. Tobacco cessation information can be given at discharge (8) Hypokalemia SNOMED Code(s): 63794471 ICD Code: E87.6 - HYPOKALEMIA Status: Acute Current Visit: Yes Onset Date: 11/30/17 Problem Details: Resolved with oral supplementation and IV fluids (9) Hypocalcemia SNOMED Code(s): 1334812 ICD Code: E83.51 - HYPOCALCEMIA Status: Acute Priority: Medium Current Visit: Yes Onset Date: 11/30/17 Problem Details: Observe for now with consideration of calcium and vitamin D supplementation depending on blood work results at time of follow-up visit - Patient Summary/Data Operative Procedure(s) Performed: None Complications: None Consults: None Labs Pending at D/C: Final urine culture and stool culture results Recommended Follow-up Testing/Procedures: As per discharge instructions Planned Operative Procedure(s) after DC: None Hospital Course: Patient was admitted to inpatient/acute care with aggressive therapy as above, including IV hydration, IV Cipro, IV Flagyl, etc. Persistent nonspecific symptoms as above with possible additional further GI workup depending on her symptoms at follow-up as per discharge instructions, etc. as above - Patient Instructions Diet: Regular Diet as Tolerated Diet, Other: [place] diet including encouragement of oral fluids such as sports drinks, et Activity: As Tolerated Driving: May Drive Today Showering/Bathing: May Shower Notify Provider of: Fever, Increased Pain, Nausea and/or Vomiting Other/Special Instructions: 1. Follow-up with your regular provider in one week with recommended repeat CBC, comprehensive metabolic panel, amylase, and lipase. Discuss possible further GI workup at that time, including colonoscopy, EGD, CT scans, abdominal ultrasounds, etc. depending on your symptoms at follow- up. 2. School Excuse-See Form. 3. Stop all tobacco use LILO as directed/per provided information and consider contacting [employer], etc.. 4. Discontinue all illicit drug use. 5. High-protein Glucerna supplements twice a day as snacks - Discharge Plan Prescriptions/Med Rec: Fluconazole [Diflucan] 150 mg PO DAILY PRN #2 tablet PRN Reason: Vaginal moniliasis Lactobacillus Combination No.8 [Adult Probiotic] 2 tab PO TID #42 capsule metroNIDAZOLE [Flagyl] 500 mg PO Q8H #21 tab Home Medications: Home Meds FLUoxetine HCl [Prozac] 20 mg PO DAILY 11/26/17 [History] Acetaminophen 650 mg PO Q4H PRN 11/30/17 [History] Ibuprofen 400 mg PO Q6H PRN 11/30/17 [History] Acetaminophen [Tylenol] 650 mg PO Q4H PRN tablet 12/02/17 [Rx] Fluconazole [Diflucan] 150 mg PO DAILY PRN #2 tablet 12/02/17 [Rx] Lactobacillus Combination No.8 [Adult Probiotic] 2 tab PO TID #42 capsule [Rx] metroNIDAZOLE [Flagyl] 500 mg PO Q8H #21 tab 12/02/17 [Rx] Forms: ED Department Discharge Referrals: Sravan Barajas MD [Family Provider] - - General Info Date of Service: 12/02/17 Admission Dx/Problem (Free Text: 1. Abdominal pain 2. Nausea/emesis 3. Dehydration Functional Status: Reports: Pain Controlled, Tolerating Diet, Ambulating, Urinating. Denies: New Symptoms, Incentive Spirometry Numeric/FACES Score: 7 (Nonspecific generalized as above) - Review of Systems General: Denies: Fever, Weakness, Fatigue, Malaise, Chills, Night Sweats, Appetite (Tolerating diet) HEENT: Reports: No Symptoms. Denies: Ear Pain, Eye Pain, Headaches, Post Nasal Drip, Sinus Congestion, Sore Throat, Rhinitis, Visual Changes Pulmonary: Reports: No Symptoms. Denies: Shortness of Breath, Pleuritic Chest Pain, Cough, Sputum, Wheezing Cardiovascular: Reports: No Symptoms. Denies: Chest Pain, Palpitations, Dyspnea on Exertion, Orthopnea, PND, Edema, Lightheadedness Gastrointestinal: Reports: Abdominal Pain (Nonspecific). Denies: Constipation, Decreased Appetite, Diarrhea, Difficulty Swallowing, Flatus, Hematochezia, Melena, Nausea, Vomiting Genitourinary: Reports: No Symptoms. Denies: Dysuria, Frequency, Burning, Pain , Urgency, Incontinence, Hematuria, Retention, Flank Pain Musculoskeletal: Reports: No Symptoms. Denies: Neck Pain, Shoulder Pain, Arm Pain, Back Pain, Leg Pain Skin: Reports: No Symptoms. Denies: Jaundice, Pallor, Diaphoresis, Dryness, Bruising Neurological: Reports: No Symptoms. Denies: Confusion, Dizziness, Headache, Numbness, Paresthesia, Tingling, Weakness Psychiatric: Reports: No Symptoms. Denies: Confusion, Depression, Anxiety, Agitation, Hallucinations - Patient Data Vitals - Most Recent: Last Vital Signs Temp 36.6 C 12/02/17 08:00 Pulse 84 12/02/17 08:00 Resp 16 12/02/17 08:00 BP 101/64 12/02/17 08:00 Pulse Ox 97 12/02/17 08:00 Vital Signs - 24 hr 12/01/17 12/01/17 12/01/17 12:00 16:00 20:00 Temperature [ 37.0 C 36.8 C Oral] Temperature [ 36.7 C Temporal] Pulse, 79 77 78 Peripheral [ Pulse Oximetry] Respiratory 16 Rate Blood Pressure 104/59 L 109/50 L 103/65 [Right Upper Arm] O2 Sat by Pulse 99 100 99 Oximetry 12/02/17 12/02/17 04:00 08:00 Temperature [ 36.8 C Oral] Temperature [ 36.6 C Temporal] Pulse, 76 84 Peripheral [ Pulse Oximetry] Respiratory 16 16 Rate Blood Pressure 100/54 L 101/64 [Right Upper Arm] O2 Sat by Pulse 98 97 Oximetry Weight - Most Recent: 62.097 kg I&O - Last 24 hours: Intake & Output 12/01/17 12/02/17 12/02/17 22:59 06:59 14:59 Intake Total 1312 440 Output Total 1400 1100 900 Balance -26 -7971 -601 Imaging Impressions - Last 24 hrs: Acute abdominal x-rays on 11/30/17 shows evidence of moderate pulmonary obstructive disease without cardiomegaly, CHF, pulmonary infiltrates, free air, ileus, obstruction, pneumothorax, etc.. Mildly elevated right hemidiaphragm with some atelectasis noted in the right middle lobe. Mildly increased nonspecific bowel gaseous pattern particularly in the colon. Lab Results - Last 24 hrs: Laboratory Results - last 24 hr 12/02/17 Range/Units 07:11 Sodium 139 (136-145) mmol/L Potassium 4.1 (3.5-5.1) mmol/L Chloride 106 (98-107) mmol/L Carbon Dioxide 30.4 (21.0-32.0) mmol/L BUN 5 L (7-18) mg/dL Creatinine 0.68 (0.51-1.17) mg/dL Est Cr Clr Drug Dosing 109.72 mL/min Estimated GFR (MDRD) > 60 mL/min Glucose 93 (74-106) mg/dL Calcium 7.7 L (8.5-10.1) mg/dL Laboratory Tests 11/30/17 11/30/17 11/30/17 Range/Units 04:30 04:30 06:57 WBC 7.7 (4.0-10.2) K/uL RBC 4.44 (3.77-5.09) M/uL Hgb 12.6 D (11.7-15.5) g/dL Hct 37.2 (34.0-46.0) % MCV 83.8 L (84.0-98.0) fL MCH 28.4 (28.2-33.3) pg MCHC 33.9 (31.7-36.0) g/dL RDW 13.9 (11.2-14.1) % Plt Count 300 (150-350) K/uL Neut % (Auto) 84.3 H (45.0-80.0) % Lymph % (Auto) 8.7 L (10.0-50.0) % [place] % (Auto) 6.0 (2.0-14.0) % Eos % (Auto) 0.9 (0.0-5.0) % Baso % (Auto) 0.1 (0.0-2.0) % Neut # (Auto) 6.49 (1.40-7.00) K/uL Lymph # (Auto) 0.67 (0.50-3.50) K/uL [place] # (Auto) 0.46 (0.00-1.00) K/uL Eos # (Auto) 0.07 (0.00-0.50) K/uL Baso # (Auto) 0.01 (0.00-0.20) K/uL Sodium (136-145) mmol/L Potassium (3.5-5.1) mmol/L Chloride (98-107) mmol/L Carbon Dioxide (21.0-32.0) mmol/L BUN (7-18) mg/dL Creatinine (0.51-1.17) mg/dL Est Cr Clr Drug Dosing mL/min Estimated GFR (MDRD) mL/min Glucose (74-106) mg/dL Lactic Acid (0.4-2.0) mmol/L Calcium (8.5-10.1) mg/dL Magnesium (1.8-2.4) mg/dL Total Bilirubin (0.2-1.0) mg/dL AST (15-37) U/L ALT (12-78) U/L Alkaline Phosphatase (46-116) IU/L Total Protein (6.4-8.2) g/dL Albumin (3.4-5.0) g/dL Amylase (25-115) U/L Lipase (73-393) U/L HCG, Qual (NEGATIVE) Specimen Type Urincc Urine Color Yellow Urine Appearance Cloudy Urine pH 5.5 (5.0-9.0) Ur Specific [place] 1.025 (1.005-1.030) Urine Protein Negative (NEGATIVE) mg/dL Urine Glucose (UA) Negative (NEGATIVE) mg/dL Urine Ketones Negative (NEGATIVE) mg/dL Urine Occult Blood Trace-intact H (NEGATIVE) Urine Nitrite Negative (NEGATIVE) Urine Bilirubin Negative (NEGATIVE) Urine Urobilinogen 0.2 (0.2-1.0) E.U./dL Ur Leukocyte Esterase Negative (NEGATIVE) Urine RBC 0-5 /HPF Urine WBC 0-5 /HPF Ur Epithelial Cells Few /LPF Amorphous Sediment Many H (0/HPF) /HPF Urine Bacteria Few (NONE TO FEW) /HPF Urine Opiates Screen Negative (NEGATIVE) Ur Barbiturates Screen Negative (NEGATIVE) Ur Tricyclics Screen Negative (NEGATIVE) Ur Phencyclidine Scrn Negative (NEGATIVE) Ur Amphetamine Screen Negative (NEGATIVE) U Methamphetamines Scrn Negative (NEGATIVE) U Benzodiazepines Scrn Negative (NEGATIVE) U Cocaine Metab Screen Negative (NEGATIVE) U Marijuana (THC) Screen Negative (NEGATIVE) 11/30/17 11/30/17 12/01/17 Range/Units 06:57 06:57 06:28 WBC 4.5 (4.0-10.2) K/uL RBC 4.01 (3.77-5.09) M/uL Hgb 11.4 L (11.7-15.5) g/dL Hct 34.3 (34.0-46.0) % MCV 85.5 (84.0-98.0) fL MCH 28.4 (28.2-33.3) pg MCHC 33.2 (31.7-36.0) g/dL RDW 13.9 (11.2-14.1) % Plt Count 301 (150-350) K/uL Neut % (Auto) 33.0 L (45.0-80.0) % Lymph % (Auto) 50.4 H (10.0-50.0) % [place] % (Auto) 13.7 (2.0-14.0) % Eos % (Auto) 2.7 (0.0-5.0) % Baso % (Auto) 0.2 (0.0-2.0) % Neut # (Auto) 1.47 (1.40-7.00) K/uL Lymph # (Auto) 2.25 (0.50-3.50) K/uL [place] # (Auto) 0.61 (0.00-1.00) K/uL Eos # (Auto) 0.12 (0.00-0.50) K/uL Baso # (Auto) 0.01 (0.00-0.20) K/uL Sodium 140 (136-145) mmol/L Potassium 2.9 L* (3.5-5.1) mmol/L Chloride 103 (98-107) mmol/L Carbon Dioxide 28.7 (21.0-32.0) mmol/L BUN 5 L (7-18) mg/dL Creatinine 0.70 (0.51-1.17) mg/dL Est Cr Clr Drug Dosing 105.41 mL/min Estimated GFR (MDRD) > 60 mL/min Glucose 100 (74-106) mg/dL Lactic Acid (0.4-2.0) mmol/L Calcium 7.9 L (8.5-10.1) mg/dL Magnesium 1.3 L (1.8-2.4) mg/dL Total Bilirubin 0.2 (0.2-1.0) mg/dL AST 17 (15-37) U/L ALT 27 (12-78) U/L Alkaline Phosphatase 72 (46-116) IU/L Total Protein 5.7 L (6.4-8.2) g/dL Albumin 2.5 L (3.4-5.0) g/dL Amylase 33 (25-115) U/L Lipase 102 (73-393) U/L HCG, Qual Negative (NEGATIVE) Specimen Type Urine Color Urine Appearance Urine pH (5.0-9.0) Ur Specific [place] (1.005-1.030) Urine Protein (NEGATIVE) mg/dL Urine Glucose (UA) (NEGATIVE) mg/dL Urine Ketones (NEGATIVE) mg/dL Urine Occult Blood (NEGATIVE) Urine Nitrite (NEGATIVE) Urine Bilirubin (NEGATIVE) Urine Urobilinogen (0.2-1.0) E.U./dL Ur Leukocyte Esterase (NEGATIVE) Urine RBC /HPF Urine WBC /HPF Ur Epithelial Cells /LPF Amorphous Sediment (0/HPF) /HPF Urine Bacteria (NONE TO FEW) /HPF Urine Opiates Screen (NEGATIVE) Ur Barbiturates Screen (NEGATIVE) Ur Tricyclics Screen (NEGATIVE) Ur Phencyclidine Scrn (NEGATIVE) Ur Amphetamine Screen (NEGATIVE) U Methamphetamines Scrn (NEGATIVE) U Benzodiazepines Scrn (NEGATIVE) U Cocaine Metab Screen (NEGATIVE) U Marijuana (THC) Screen (NEGATIVE) 12/01/17 12/01/17 12/02/17 Range/Units 06:28 06:28 07:11 WBC (4.0-10.2) K/uL RBC (3.77-5.09) M/uL Hgb (11.7-15.5) g/dL Hct (34.0-46.0) % MCV (84.0-98.0) fL MCH (28.2-33.3) pg MCHC (31.7-36.0) g/dL RDW (11.2-14.1) % Plt Count (150-350) K/uL Neut % (Auto) (45.0-80.0) % Lymph % (Auto) (10.0-50.0) % [place] % (Auto) (2.0-14.0) % Eos % (Auto) (0.0-5.0) % Baso % (Auto) (0.0-2.0) % Neut # (Auto) (1.40-7.00) K/uL Lymph # (Auto) (0.50-3.50) K/uL [place] # (Auto) (0.00-1.00) K/uL Eos # (Auto) (0.00-0.50) K/uL Baso # (Auto) (0.00-0.20) K/uL Sodium 141 139 (136-145) mmol/L Potassium 3.3 L 4.1 (3.5-5.1) mmol/L Chloride 108 H 106 (98-107) mmol/L Carbon Dioxide 29.1 30.4 (21.0-32.0) mmol/L BUN 4 L 5 L (7-18) mg/dL Creatinine 0.65 0.68 (0.51-1.17) mg/dL Est Cr Clr Drug Dosing 113.52 109.72 mL/min Estimated GFR (MDRD) > 60 > 60 mL/min Glucose 85 93 (74-106) mg/dL Lactic Acid 0.7 (0.4-2.0) mmol/L Calcium 7.0 L 7.7 L (8.5-10.1) mg/dL Magnesium (1.8-2.4) mg/dL Total Bilirubin (0.2-1.0) mg/dL AST (15-37) U/L ALT (12-78) U/L Alkaline Phosphatase (46-116) IU/L Total Protein (6.4-8.2) g/dL Albumin (3.4-5.0) g/dL Amylase (25-115) U/L Lipase (73-393) U/L HCG, Qual (NEGATIVE) Specimen Type Urine Color Urine Appearance Urine pH (5.0-9.0) Ur Specific [place] (1.005-1.030) Urine Protein (NEGATIVE) mg/dL Urine Glucose (UA) (NEGATIVE) mg/dL Urine Ketones (NEGATIVE) mg/dL Urine Occult Blood (NEGATIVE) Urine Nitrite (NEGATIVE) Urine Bilirubin (NEGATIVE) Urine Urobilinogen (0.2-1.0) E.U./dL Ur Leukocyte Esterase (NEGATIVE) Urine RBC /HPF Urine WBC /HPF Ur Epithelial Cells /LPF Amorphous Sediment (0/HPF) /HPF Urine Bacteria (NONE TO FEW) /HPF Urine Opiates Screen (NEGATIVE) Ur Barbiturates Screen (NEGATIVE) Ur Tricyclics Screen (NEGATIVE) Ur Phencyclidine Scrn (NEGATIVE) Ur Amphetamine Screen (NEGATIVE) U Methamphetamines Scrn (NEGATIVE) U Benzodiazepines Scrn (NEGATIVE) U Cocaine Metab Screen (NEGATIVE) U Marijuana (THC) Screen (NEGATIVE) JCARLOS Results - Last 24 hrs: Microbiology 11/30/17 04:30 Stool Culture - Preliminary Stool / Feces Shiga Toxin I & II - Final 11/30/17 04:30 Urine Culture - Final Urine, Clean Catch NO GROWTH AFTER 2 DAYS 11/30/17 04:30 Clostridium difficile (PCR) - Final Stool / Feces 11/30/17 04:30 Cryptosporidium/Giardia - Final Stool / Feces Med Orders - Current: Current Medications Acetaminophen (Tylenol) 650 mg PO Q4H PRN PRN Reason: Pain (Mild 1-3)/fever Last Admin: 11/30/17 22:06 Dose: 650 mg Famotidine (Pepcid) 20 mg IVPUSH Q12H SELVIN Last Admin: 12/02/17 05:00 Dose: 20 mg Fluoxetine HCl (Prozac) 20 mg PO DAILY [facility] Last Admin: 12/02/17 07:34 Dose: 20 mg Potassium Chloride/Dextrose/Sod Cl (D5 1/2 Ns W/ 20 Meq/L Kcl) 1,000 mls @ 125 mls/hr IV ASDIRECTED [facility] Last Admin: 12/02/17 03:49 Dose: 125 mls/hr Metronidazole 500 mg/ Premix 100 mls @ 100 mls/hr IV Q8H [facility] Last Admin: 04/26/18 04:58 Dose: 100 mls/hr Loperamide HCl (Imodium Ad) 2 mg PO Q6H PRN PRN Reason: Diarrhea Last Admin: 11/30/17 22:06 Dose: 2 mg Ondansetron HCl (Zofran) 4 mg IVPUSH Q6H PRN PRN Reason: Nausea/Vomiting Last Admin: 12/02/17 02:20 Dose: 4 mg Pantoprazole Sodium (Protonix Iv) 40 mg IVPUSH Q12H [facility] Last Admin: 12/02/17 04:58 Dose: 40 mg Potassium Chloride (Klor-Con M20) 20 meq PO TID [facility] Last Admin: 12/02/17 07:34 Dose: 20 meq Simethicone (Simethicone) 125 mg PO QID PRN PRN Reason: Gas Last Admin: 12/01/17 15:55 Dose: 125 mg Sodium Chloride (Saline Flush) 10 ml FLUSH ASDIRECTED PRN PRN Reason: Keep Vein Open Last Admin: 12/02/17 05:01 Dose: 10 ml Sodium Chloride (Saline Flush) 10 ml FLUSH Q12HR [facility] Last Admin: 12/02/17 07:35 Dose: 10 ml Temazepam (Restoril) 15 mg PO DAILY@2000 PRN PRN Reason: Insomnia Last Admin: 12/02/17 02:20 Dose: 15 mg Terconazole (Terazol 7 Vaginal Crm) 0 gm VAG BEDTIME PRN PRN Reason: Itching Discontinued Medications Famotidine (Pepcid) 40 mg IVPUSH ONETIME ONE Stop: 11/30/17 05:02 Last Admin: 11/30/17 05:07 Dose: 40 mg Lactated Ringer's (Ringers, Lactated) 1,000 mls @ 999 mls/hr IV .BOLUS ONE Stop: 11/30/17 04:59 Last Admin: 11/30/17 04:08 Dose: 999 mls/hr Ciprofloxacin/Dextrose 200 mg/ (Premix) 100 mls @ 100 mls/hr IV Q12H [facility] Last Admin: 12/01/17 05:14 Dose: 100 mls/hr Lactated Ringer's (Ringers, Lactated) 1,000 mls @ 999 mls/hr IV .BOLUS ONE Stop: 11/30/17 14:36 Last Admin: 11/30/17 13:56 Dose: 999 mls/hr Loperamide HCl (Imodium Ad) 4 mg PO ONETIME ONE Stop: 11/30/17 05:01 Last Admin: 11/30/17 05:07 Dose: 4 mg Metoclopramide HCl (Reglan) 10 mg IVPUSH ONETIME ONE Stop: 11/30/17 04:51 Last Admin: 11/30/17 05:04 Dose: 10 mg Pantoprazole Sodium (Protonix Iv) 40 mg IVPUSH Q12H SELVIN - Exam Quality Assessment: Reports: DVT Prophylaxis. Denies: Supplemental Oxygen, Central Line/PICC, Urine Catheter, Skin Breakdown, Restraints General: Reports: Alert, Oriented, Cooperative, No Acute Distress HEENT: Reports: Pupils Equal, Pupils Reactive, EOMI, Mucous Membr. Moist/[place] Neck: Reports: Supple, Trachea Midline, No JVD, No Thyromegaly, +2 Carotid Pulse wo Bruit. Denies: Lymphadenopathy Lungs: Reports: Clear to Auscultation, Normal Respiratory Effort. Denies: Rub Cardiovascular: Reports: Regular Rate, Regular Rhythm, No Murmurs. Denies: Gallops, Rubs GI/Abdominal Exam: Normal Bowel Sounds, Soft, No Organomegaly, No Distention, No Abnormal Bruit, No Mass, Tender (Nonspecific borderline diffuse palpation pain). No: Guarding, Rigid, Rebound (Female) Exam: Deferred Rectal (Female) Exam: Deferred Back Exam: Reports: Normal Inspection, Full Range of Motion. Denies: CVA Tenderness (L), CVA Tenderness (R), Muscle Spasm Extremities: Normal Inspection, Normal Range of Motion, Non-Tender, No Pedal Edema, Normal Capillary Refill. No: Natalya's Sign Skin: Reports: Warm, Dry, Intact. Denies: Ecchymosis Neurological: Reports: No New Focal Deficit, Other (No clinical orthostasis) Psy/Mental Status: Reports: Alert, Anxious (Mild to moderate), Depressed (Mild with adequate eye contact). Denies: Agitated, Suicidal Ideation, Homicidal Ideation, Hallucinations, Withdrawal Symptoms
== END 2017-12-02 13:10 | disposition home or self-care (01) | DRG 641 ==
LOC: LL.ED 03:29 → SUPCPDRO 03:29 → LL.MS 04:50
PROVIDERS: ADMIT Family Medicine; ATTEND Family Medicine
DX: E86.0 Dehydration (principal); R19.7 Diarrhea, unspecified; R10.9 Unspecified abdominal pain; Z88.1 Allergy status to other antibiotic agents; Z79.890 Hormone replacement therapy; J30.9 Allergic rhinitis, unspecified; H54.7 Unspecified visual loss; H91.90 Unspecified hearing loss, unspecified ear; I95.1 Orthostatic hypotension; K21.9 Gastro-esophageal reflux disease without esophagitis; Z87.440 Personal history of urinary (tract) infections; N93.8 Other specified abnormal uterine and vaginal bleeding; M19.90 Unspecified osteoarthritis, unspecified site; G89.29 Other chronic pain; M54.9 Dorsalgia, unspecified; G43.909 Migraine, unspecified, not intractable, without status migrainosus; E61.1 Iron deficiency; D64.9 Anemia, unspecified; E66.1 Drug-induced obesity; Z85.41 Personal history of malignant neoplasm of cervix uteri; Z98.891 History of uterine scar from previous surgery; F17.210 Nicotine dependence, cigarettes, uncomplicated; R53.1 Weakness; R50.9 Fever, unspecified; R42 Dizziness and giddiness; F41.8 Other specified anxiety disorders; E87.6 Hypokalemia; E83.51 Hypocalcemia
CPT/HCPCS: 36415; 74022; 80048; 80053; 80305; 81001; 82150; 82272; 83516; 83605; 83690; 83735; 84703; 85025; 87045; 87046; 87086; 87328; 87329; 87493; 87899; 96361; 96374; 96375; 99285; A9270-GY; C9113; J0744; J2405; J2765; J3480; J7050; J7120; S0028

== ENCOUNTER 2019-05-08 19:19 | Emergency (ER) | payer MEDICAID ==
[2019-05-08 19:24] VITALS: BP 108/70; PULSE 95
[2019-05-08] MEDS ORDERED: Bacitracin/Neomycin/Polymyxin B Oint 0.9 GM U/D Packet TOP ONE (19:37)
--- NOTE | 2019-05-08 19:59 | EDM.PDOC ---
ED HPI GENERAL MEDICAL PROBLEM - General Chief Complaint: Laceration Stated Complaint: right hand laceration Time Seen by Provider: 05/08/19 19:35 Source of Information: Reports: Patient History Limitations: Reports: No Limitations - History of Present Illness INITIAL COMMENTS - FREE TEXT/NARRATIVE: Right hand laceration. Happened while patient doing dishes. No numbness of involved hand/finger. No loss of function. 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: Dressing(s) Right Hand Pain Score (Numeric/FACES): 5 - Related Data Allergies Allergy/AdvReac Type Severity Reaction Status Date / Time nitrofurantoin Allergy Swollen Verified 11/30/17 03:32 [From Macrodantin] Tongue Sulfa (Sulfonamide Allergy Itching Verified 05/08/19 19:25 Antibiotics) Home Meds: Home Meds Ibuprofen 400 mg PO Q6H PRN 11/30/17 [History] Acetaminophen [Tylenol] 650 mg PO Q4H PRN tablet 12/02/17 [Rx] Past Medical History HEENT History: Reports: Other (See Below) Other HEENT History: Nasal fracture in 2008 requiring surgery as below Cardiovascular History: Reports: Syncope Other Cardiovascular History: Orthostatic hypotension/syncopal episode in 2016 secondary to dehydration. History of hypotension Respiratory History: Reports: Intubation, Previous Gastrointestinal History: Reports: GERD Genitourinary History: Reports: UTI, Recurrent CORPORATE TRAVEL AGENT History: Reports: Dysfunctional Uterine Bleeding, Endometrial Ablation, Other CORPORATE TRAVEL AGENT History: Deliveries by with one at 34 weeks requiring NICU care with placenta previa during that . Very irregular menses since uterine ablation frequent spotting including currently. Musculoskeletal History: Reports: Arthritis, Back Pain, Chronic, Fracture, Osteoarthritis, Other (See Below) Other Musculoskeletal History: Proximal phalangeal fracture of digit #2 at age 5 Neurological History: Reports: Concussion, Headaches, Chronic, Head Trauma, Migraines, Other (See Below) Other Neuro History: Concussion in July 2017 Psychiatric History: Reports: Addiction, Anxiety, Depression, Other (See Below) Other Psychiatric History: Illicit drug use as below Endocrine/Metabolic History: Reports: None Hematologic History: Reports: Anemia, Iron Deficiency, Other (See Below) Other Hematologic History: Anemia of and Immunologic History: Reports: None Oncologic (Cancer) History: Reports: Cervix, Other (See Below) Other Oncologic History: Precancerous Pap smears at age 15 requiring LEEP as below Dermatologic History: Reports: None - Infectious Disease History Infectious Disease History: Reports: Chicken Pox, Human Papilloma Virus (HPV), Mononucleosis - Past Surgical History Head Surgeries/Procedures: Reports: None HEENT Surgical History: Reports: Naso-Sinus Surgery, Oral Surgery, Other (See Below) Other HEENT Surgeries/Procedures: Crestline teeth extraction 4 at age 15. Nasal septum deviation repair with turbinate revision in 2009 Cardiovascular Surgical History: Reports: Varicose Other Cardiovascular Surgeries/Procedures: Radiofrequency ablation of varicose veins the legs bilaterally in 2014 Respiratory Surgical History: Reports: None GI Surgical History: Reports: Hernia, Abdominal, Other (See Below) Other GI Surgeries/Procedures: Umbilical hernia repair in 2012 Female Surgical History: Reports: Breast Implant, Breast Reconstruction, Section, Cystoscopy, LEEP, Tubal Ligation, Other (See Below) Other Female Surgeries/Procedures: C-sections 4 as above. Bilateral tubal ligation at age 29. LEEP secondary to cervical dysplasia at age 15. Cystoscopy with urethral meatotomy 2011 with previous multiple urethral dilatations. Uterine ablation in 2015 secondary to dysfunctional uterine bleeding. Bilateral breast augmentation 2003. Endocrine Surgical History: Reports: None Musculoskeletal Surgical History: Reports: Arthroscopic Procedure, Shoulder Surgery, Other (See Below) Other Musculoskeletal Surgeries/Procedures:: Right arthroscopic surgery for labrum repair in 2012 Oncologic Surgical History: Reports: None Dermatological Surgical History: Reports: None - Past Imaging History Past Imaging History: Reports: Mammogram (Last 2015), Ultrasound (Multiple Ob Ultrasounds) Social & Family History - Family History HEENT: Reports: None Cardiac: Reports: AICD, Aneurysm, Arrhythmia, Bypass, CAD, Cardiomyopathy, Heart Failure, Heart Murmur, Heart Valve Replacement, High Cholesterol, Hypertension, AZ, Pacemaker, Stent, Syncope, Other (See Below) Other Cardiac Family History: Maternal grandfather with recurrent AZ initially at age 55 with CABG 3 at that time with subsequent pacemaker, AICD, PTCA/stents , and artificial heart valves with history of hypertension and hyperlipidemia. Hyperlipidemia in mother and maternal grandmother. Hypertension in maternal grandmother. Maternal grandfather with syncopal episodes and AAA. Maternal grandmother with DVTs Respiratory: Reports: None GI: Reports: None, Celiac Disease, Irritable Bowel Syndrome, Other (See Below) Other GI Family History: Maternal grandfather with cholecystectomy. Maternal grandmother with celiac disease and IBS. : Reports: Renal Disease/Insufficiency, Other (See Below) Other Family History: Maternal grandfather with renal insufficiency OBGYN: Reports: None Musculoskeletal: Reports: None Neurological: Reports: CVA, Migraines, Other (See Below) Other Neurological Family History: Migraine headaches in mother and maternal grandmother. Maternal grandfather with recurrent CVAs Psychiatric: Reports: ADD, ADHD, Anxiety, Other (See Below) Other Psychiatric Family History: Son with ADHD and autism. Daughter with anxiety. 2 brothers with ADHD Endocrine/Metabolic: Reports: Diabetes, type II, Hypothyroidism, IDDM, Multinodular Thyroid, Other (See Below) Other Endocrine/Metabolic Family History: Maternal uncle with thyroidectomy secondary to goiter. Maternal grandmother and maternal aunt with hypothyroidism. Paternal grandfather with IDDM Immunologic: Reports: None Dermatologic: Reports: None Oncologic: Reports: Metastatic, Skin, Other (See Below) Other Oncologic Family History: Maternal great grandmother with unknown type of fatal metastatic cancer in her 40s. Maternal grandfather with melanoma. - Tobacco Use Smoking Status *Q: Current Every Day Smoker Years of Tobacco use: 9 Packs/Tins Daily: 0.5 - Caffeine Use Caffeine Use: Reports: Coffee, Soda - Recreational Drug Use Recreational Drug Use: Yes Drug Use in Last 12 Months: No Recreational Drug Type: Reports: Marijuana/Hashish - Living Situation & Occupation Living situation: Reports: (2009, 4 children, currently in divorce proceedings) Occupation: Employed ([employer] about to be employed at [employer] in [place] urgent [place]) ED ROS GENERAL - Review of Systems Review Of Systems: ROS reveals no pertinent complaints other than HPI. ED EXAM, SKIN/RASH Exam: See Below Exam Limited By: No Limitations General Appearance: Alert, WD/WN, No Apparent Distress Eye Exam: Bilateral Eye: EOMI, PERRL Throat/Mouth: Normal Lips, Normal Voice, No Airway Compromise Head: Atraumatic, Normocephalic Neck: Supple Respiratory/Chest: No Respiratory Distress Extremities: Other (laceration back of right hand over 2nd metacarpal. Able to flex and extend all fingers well. Good pony rougher strength. Sensation intact. ) Neurological: Alert, Oriented, Normal Cognition, Normal Gait, No Motor/Sensory Deficits Psychiatric: Normal Affect, Normal Mood Skin: Warm, Dry ED SKIN PROCEDURES - Laceration/Wound Repair Right Hand Appearance: Subcutaneous, Irregular, Clean Distal NVT: Neuro & Vascular Intact, No Tendon Injury Anesthetic Type: Local Local Anesthesia - Lidocaine (Xylocaine): 1% Plain Local Anesthetic Volume: 3cc Skin Prep: Providone-Iodine (Betadine) Exploration/Debridement/Repair: Wound Explored, In a Bloodless Field, Explored to Base, No Foreign Material Found Lac/Wound length In cm: 3 Suture Size: 4-0 # of Sutures: 6 Suture Type: Nylon, Interrupted Sterile Dressing Applied: Nurse Tetanus Status Addressed: Yes (Up to date per patient) Complications: No Course - Vital Signs Last Recorded V/S: Last Vital Signs Temp 36.5 C 05/08/19 19:20 Pulse 95 05/08/19 19:20 Resp 20 05/08/19 19:20 BP 108/70 05/08/19 19:20 Pulse Ox 100 05/08/19 19:20 - Orders/Labs/Meds Meds: Medications Discontinued Medications Generic Name Dose Route Start Last Admin Trade Name Nathaniel PRN Reason Stop Dose Admin Lidocaine HCl 5 ml 05/08/19 19:37 05/08/19 19:41 Xylocaine-Mpf 1% INJECT 05/08/19 19:38 5 ml ONETIME ONE Administration Neomycin/Polymyxin/Bacitracin 1 each 05/08/19 19:37 05/08/19 19:41 Triple Antibiotic Oint TOP 05/08/19 19:38 1 each ONETIME ONE Administration - Re-Assessments/Exams Free Text/Narrative Re-Assessment/Exam: 05/08/19 20:04 Laceration repaired. Tetanus up to date per patient. Wound care reviewed. Departure - Departure Time of Disposition: 20:00 Disposition: Home, Self-Care 01 Condition: Good Clinical Impression: Hand laceration Qualifiers: Encounter type: initial encounter Foreign body presence: without foreign body Laterality: right Qualified Code(s): S61.411A - Laceration without foreign body of right hand, initial encounter - Discharge Information *PRESCRIPTION DRUG MONITORING PROGRAM REVIEWED*: Not Applicable *COPY OF PRESCRIPTION DRUG MONITORING REPORT IN PATIENT LOVE: Not Applicable Instructions: Sutured Wound Care, [id number] Forms: ED Department Discharge Additional Instructions: Wound care as discussed. Follow up as needed if any problems such as signs of infection develop. Sutures out in 7-8 days.
== END 2019-05-08 20:13 | disposition home or self-care (01) ==
LOC: LL.ED 19:19
DX: S61.411A Laceration without foreign body of right hand, initial encounter (principal); F17.210 Nicotine dependence, cigarettes, uncomplicated; Z88.8 Allergy status to other drugs, medicaments and biological substances; Z98.51 Tubal ligation status; Z88.2 Allergy status to sulfonamides; W26.8XXA Contact with other sharp object(s), not elsewhere classified, initial encounter
CPT/HCPCS: 12002; 99282; J2001

== ENCOUNTER 2021-06-27 02:27 | Emergency (ER) | payer MEDICAID, OTHER ==
[2021-06-27] MEDS ORDERED: LORazepam 1 MG Tab PO ONE (02:35)
[2021-06-27] MEDS ORDERED: GI Cocktail Oral Solution 30 ML PO ONE (02:41)
--- NOTE | 2021-06-27 02:41 | EDM.PDOC ---
ED HPI GENERAL MEDICAL PROBLEM - General Chief Complaint: Respiratory Problem Stated Complaint: panic attack Time Seen by Provider: 06/27/21 02:30 Source of Information: Reports: Patient History Limitations: Reports: No Limitations - History of Present Illness INITIAL COMMENTS - FREE TEXT/NARRATIVE: Patient comes emergency department today with concerns of a panic attack. This patient who really only reports that she has a history of Covid who has been crying most of the day as she is having a very stressful week as she is moving out of her boyfriend's apartment. She spent most of the day crying shaking anxious because she is having to move out. Just prior to arrival the patient awoke in the middle the night she was hyperventilating she had tingling in her hands and her legs she had shortness of breath she started to get more worried about all the symptoms that were happening and then she noticed that she had some tightness in her chest she had a headache she was very anxious she started to have a panic attack. Upon arrival she denies any pain in her chest. She does complain of shortness of breath difficulty breathing. No abdominal pain nausea vomiting. No fever no chills. No cough congestion. She still has cramping and tingling in her hands and her feet. She nausea headache. She feels very anxious. He also complains of burning in her chest consistent with heart burn that she has regularly. She also reports that she is an IV drug user and last used Meth yesterday. She did have COVID and had an elevated troponin that she was hospitalized for a few months ago. - Related Data Allergies Allergy/AdvReac Type Severity Reaction Status Date / Time nitrofurantoin Allergy Swollen Verified 06/27/21 02:29 [From Macrodantin] Tongue Sulfa (Sulfonamide Allergy Itching Verified 06/27/21 02:29 Antibiotics) Home Meds: Home Meds Ibuprofen 400 mg PO Q6H PRN 11/30/17 [History] Acetaminophen [Tylenol] 650 mg PO Q4H PRN tablet 12/02/17 [Rx] Potassium Chloride 20 meq PO DAILY #5 tab.er.prt 06/27/21 [Rx] cephALEXin [Cephalexin] 500 mg PO QID #28 capsule 06/27/21 [Rx] Past Medical History HEENT History: Reports: Other (See Below) Other HEENT History: Nasal fracture in 2008 requiring surgery as below Cardiovascular History: Reports: Syncope Other Cardiovascular History: Orthostatic hypotension/syncopal episode in 2016 secondary to dehydration. History of hypotension Respiratory History: Reports: Intubation, Previous Gastrointestinal History: Reports: GERD Genitourinary History: Reports: UTI, Recurrent [employer] History: Reports: Dysfunctional Uterine Bleeding, Endometrial Ablation, Other [employer] History: Deliveries by with one at 34 weeks requiring NICU care with placenta previa during that . Very irregular menses since uterine ablation frequent spotting including currently. Musculoskeletal History: Reports: Arthritis, Back Pain, Chronic, Fracture, Osteoarthritis, Other (See Below) Other Musculoskeletal History: Proximal phalangeal fracture of digit #2 at age 5 Neurological History: Reports: Concussion, Headaches, Chronic, Head Trauma, Migraines, Other (See Below) Other Neuro History: Concussion in July 2017 Psychiatric History: Reports: Addiction, Anxiety, Depression, Other (See Below) Other Psychiatric History: Illicit drug use as below Endocrine/Metabolic History: Reports: None Hematologic History: Reports: Anemia, Iron Deficiency, Other (See Below) Other Hematologic History: Anemia of and Immunologic History: Reports: None Oncologic (Cancer) History: Reports: Cervix, Other (See Below) Other Oncologic History: Precancerous Pap smears at age 15 requiring LEEP as below Dermatologic History: Reports: None - Infectious Disease History Infectious Disease History: Reports: Chicken Pox, Human Papilloma Virus (HPV), Mononucleosis - Past Surgical History Head Surgeries/Procedures: Reports: None HEENT Surgical History: Reports: Naso-Sinus Surgery, Oral Surgery, Other (See Below) Other HEENT Surgeries/Procedures: [place] teeth extraction 4 at age 15. Nasal septum deviation repair with turbinate revision in 2009 Cardiovascular Surgical History: Reports: Varicose Other Cardiovascular Surgeries/Procedures: Radiofrequency ablation of varicose veins the legs bilaterally in 2014 Respiratory Surgical History: Reports: None GI Surgical History: Reports: Hernia, Abdominal, Other (See Below) Other GI Surgeries/Procedures: Umbilical hernia repair in 2012 Female Surgical History: Reports: Breast Implant, Breast Reconstruction, Section, Cystoscopy, LEEP, Tubal Ligation, Other (See Below) Other Female Surgeries/Procedures: C-sections 4 as above. Bilateral tubal ligation at age 29. LEEP secondary to cervical dysplasia at age 15. Cystoscopy with urethral meatotomy 2011 with previous multiple urethral dilatations. Uterine ablation in 2016 secondary to dysfunctional uterine bleeding. Bilateral breast augmentation 2003. Endocrine Surgical History: Reports: None Musculoskeletal Surgical History: Reports: Arthroscopic Procedure, Shoulder Surgery, Other (See Below) Other Musculoskeletal Surgeries/Procedures:: Right arthroscopic surgery for labrum repair in 2012 Oncologic Surgical History: Reports: None Dermatological Surgical History: Reports: None - Past Imaging History Past Imaging History: Reports: Mammogram (Last 2015), Ultrasound (Multiple Ob Ultrasounds) Social & Family History - Family History HEENT: Reports: None Cardiac: Reports: AICD, Aneurysm, Arrhythmia, Bypass, CAD, Cardiomyopathy, Heart Failure, Heart Murmur, Heart Valve Replacement, High Cholesterol, Hypertension, HI, Pacemaker, Stent, Syncope, Other (See Below) Other Cardiac Family History: Maternal grandfather with recurrent HI initially at age 55 with CABG 3 at that time with subsequent pacemaker, AICD, PTCA/stents, and artificial heart valves with history of hypertension and hyperlipidemia. Hyperlipidemia in mother and maternal grandmother. Hypertension in maternal grandmother. Maternal grandfather with syncopal episodes and AAA. Maternal grandmother with DVTs Respiratory: Reports: None GI: Reports: None, Celiac Disease, Irritable Bowel Syndrome, Other (See Below) Other GI Family History: Maternal grandfather with cholecystectomy. Maternal grandmother with celiac disease and IBS. : Reports: Renal Disease/Insufficiency, Other (See Below) Other Family History: Maternal grandfather with renal insufficiency OBGYN: Reports: None Musculoskeletal: Reports: None Neurological: Reports: CVA, Migraines, Other (See Below) Other Neurological Family History: Migraine headaches in mother and maternal grandmother. Maternal grandfather with recurrent CVAs Psychiatric: Reports: ADD, ADHD, Anxiety, Other (See Below) Other Psychiatric Family History: Son with ADHD and autism. Daughter with anxiety. 2 brothers with ADHD Endocrine/Metabolic: Reports: Diabetes, type II, Hypothyroidism, IDDM, Multinodular Thyroid, Other (See Below) Other Endocrine/Metabolic Family History: Maternal uncle with thyroidectomy secondary to goiter. Maternal grandmother and maternal aunt with hypothyroidism. Paternal grandfather with IDDM Immunologic: Reports: None Dermatologic: Reports: None Oncologic: Reports: Metastatic, Skin, Other (See Below) Other Oncologic Family History: Maternal great grandmother with unknown type of fatal metastatic cancer in her 40s. Maternal grandfather with melanoma. - Caffeine Use Caffeine Use: Reports: Coffee, Soda - Living Situation & Occupation Living situation: Reports: (2010, 4 children, currently in divorce proceedings) Occupation: Employed ([employer] about to be employed at [employer] in [facility]) ED ROS GENERAL - Review of Systems Review Of Systems: Comprehensive ROS is negative, except as noted in HPI. ED EXAM, GENERAL - Physical Exam Exam: See Below Exam Limited By: No Limitations General Appearance: Alert, WD/WN, Anxious (Extremely anxious upon exam. She is hyperventilating.) Eye Exam: Bilateral Eye: EOMI, Normal Inspection, PERRL Ears: Normal External Exam, Normal TMs Nose: Normal Inspection, Normal Mucosa Throat/Mouth: Normal Inspection, Normal Lips, Normal Teeth, Normal Gums, Normal Oropharynx, Normal Voice, No Airway Compromise Head: Atraumatic, Normocephalic Neck: Normal Inspection, Supple, Non-Tender, Full Range of Motion Respiratory/Chest: No Respiratory Distress, Lungs Clear, Normal Breath Sounds, No Accessory Muscle Use, Chest Non-Tender Cardiovascular: Normal Peripheral Pulses, Regular Rate, Rhythm, No Murmur, Tachycardia Peripheral Pulses: 2+: Radial (L), Radial (R), Posterior Tibial (L), Posterior Tibial (R), Dorsalis Pedis (L), Dorsalis Pedis (R) GI/Abdominal: Normal Bowel Sounds, Soft, Non-Tender (Female) Exam: Deferred Rectal (Female) Exam: Deferred Back Exam: Normal Inspection, Full Range of Motion Extremities: Normal Inspection, Normal Range of Motion, Non-Tender, No Pedal Edema, Normal Capillary Refill Neurological: Alert, Oriented, CN II-XII Intact, Normal Cognition, Normal Reflexes, No Motor/Sensory Deficits Psychiatric: Anxious (extremely anxious) Skin Exam: Warm, Dry, Intact, Normal Color Lymphatic: No Adenopathy Course - Vital Signs Last Recorded V/S: Last Vital Signs Temp 97.8 F 06/27/21 02:31 Pulse 91 06/27/21 08:10 Resp 11 L 06/27/21 08:10 BP 101/61 06/27/21 08:10 Pulse Ox 99 06/27/21 08:10 - Orders/Labs/Meds Orders: Active Orders 24 hr Category Date Time Status EKG Documentation Completion [RC] ASDIRECTED Care 06/27/21 02:44 Active CHLAMYDIA AND GONORRHEA BY TMA Stat Lab 06/27/21 03:30 Ordered CULTURE URINE [RM] Stat Lab 06/27/21 03:10 Received Potassium Bicarbonate/Cit Ac [Effer-K] Med 06/27/21 04:00 Active 20 meq PO Q2HR EKG 12 Lead [EK] Stat Ther 06/27/21 02:44 Ordered Medication Orders Potassium Bicarbonate (Potassium Bicarbonate/Cit Ac 20 Meq Effervescent Tab) 20 meq PO Q2HR SELVIN Stop: 06/30/21 04:01 Last Admin: 06/27/21 08:05 Dose: 20 meq Documented by: Admin: 06/27/21 06:09 Dose: 20 meq Documented by: Admin: 06/27/21 04:10 Dose: 20 meq Documented by: DIANA Labs: Laboratory Tests 06/27/21 06/27/21 06/27/21 Range/Units 03:00 03:00 03:00 WBC 6.5 (4.0-10.2) K/uL RBC 4.92 (3.77-5.09) M/uL Hgb 13.5 D (11.7-15.5) g/dL Hct 40.1 (34.0-46.0) % MCV 81.5 L D (84.0-98.0) fL MCH 27.4 L (28.2-33.3) pg MCHC 33.7 (31.7-36.0) g/dL RDW 13.7 (11.2-14.1) % Plt Count 473 H D (150-350) K/uL Neut % (Auto) 39.5 L (45.0-80.0) % Lymph % (Auto) 48.8 (10.0-50.0) % [place] % (Auto) 10.3 (2.0-14.0) % Eos % (Auto) 0.9 (0.0-5.0) % Baso % (Auto) 0.5 (0.0-2.0) % Neut # (Auto) 2.57 (1.40-7.00) K/uL Lymph # (Auto) 3.18 (0.50-3.50) K/uL [place] # (Auto) 0.67 (0.00-1.00) K/uL Eos # (Auto) 0.06 (0.00-0.50) K/uL Baso # (Auto) 0.03 (0.00-0.20) K/uL Sodium 139 (136-145) mmol/L Potassium 2.5 L* D (3.5-5.1) mmol/L Chloride 101 (98-107) mmol/L Carbon Dioxide 22.1 (21.0-32.0) mmol/L Anion Gap 18.4 H (7-15) meq/L BUN 9 (7-18) mg/dL Creatinine 1.05 (0.51-1.17) mg/dL Est Cr Clr Drug Dosing TNP Estimated GFR (MDRD) 59 mL/min Glucose 122 H (70-99) mg/dL Calcium 9.2 D (8.5-10.1) mg/dL Magnesium 1.8 (1.8-2.4) mg/dL Total Bilirubin 0.5 (0.2-1.0) mg/dL AST 22 (15-37) U/L ALT 27 (12-78) U/L Alkaline Phosphatase 58 (46-116) IU/L Troponin I High Sens 15 (<=51) ng/L Total Protein 7.2 (6.4-8.2) g/dL Albumin 4.2 (3.4-5.0) g/dL TSH, Ultra Sensitive 1.001 (0.358-3.740) mIU/mL Specimen Type Urine Color Urine Appearance Urine pH (5.0-9.0) Ur Specific [place] (1.005-1.030) Urine Protein (NEGATIVE) mg/dL Urine Glucose (UA) (NEGATIVE) mg/dL Urine Ketones (NEGATIVE) mg/dL Urine Occult Blood (NEGATIVE) Urine Nitrite (NEGATIVE) Urine Bilirubin (NEGATIVE) Urine Urobilinogen (0.2-1.0) E.U./dL Ur Leukocyte Esterase (NEGATIVE) Urine RBC /HPF Urine WBC /HPF Ur Epithelial Cells /LPF Urine Bacteria (NONE TO FEW) /HPF Urine Opiates Screen (NEGATIVE) Ur Buprenorphine Scrn (NEGATIVE) Ur Oxycodone Screen (NEGATIVE) Ur EDDP (Meth Metab) (NEGATIVE) Ur Barbiturates Screen (NEGATIVE) Ur Tricyclics Screen (NEGATIVE) Ur Amphetamine Screen (NEGATIVE) U Methamphetamines Scrn (NEGATIVE) Urine MDMA Screen (NEGATIVE) U Benzodiazepines Scrn (NEGATIVE) U Cocaine Metab Screen (NEGATIVE) U Marijuana (THC) Screen (NEGATIVE) Ethyl Alcohol 0.001 (0.000-0.080) g/dL 06/27/21 06/27/21 06/27/21 Range/Units 03:10 03:15 08:00 WBC (4.0-10.2) K/uL RBC (3.77-5.09) M/uL Hgb (11.7-15.5) g/dL Hct (34.0-46.0) % MCV (84.0-98.0) fL MCH (28.2-33.3) pg MCHC (31.7-36.0) g/dL RDW (11.2-14.1) % Plt Count (150-350) K/uL Neut % (Auto) (45.0-80.0) % Lymph % (Auto) (10.0-50.0) % [place] % (Auto) (2.0-14.0) % Eos % (Auto) (0.0-5.0) % Baso % (Auto) (0.0-2.0) % Neut # (Auto) (1.40-7.00) K/uL Lymph # (Auto) (0.50-3.50) K/uL [place] # (Auto) (0.00-1.00) K/uL Eos # (Auto) (0.00-0.50) K/uL Baso # (Auto) (0.00-0.20) K/uL Sodium (136-145) mmol/L Potassium 3.9 (3.5-5.1) mmol/L Chloride (98-107) mmol/L Carbon Dioxide (21.0-32.0) mmol/L Anion Gap (7-15) meq/L BUN (7-18) mg/dL Creatinine (0.51-1.17) mg/dL Est Cr Clr Drug Dosing Estimated GFR (MDRD) mL/min Glucose (70-99) mg/dL Calcium (8.5-10.1) mg/dL Magnesium (1.8-2.4) mg/dL Total Bilirubin (0.2-1.0) mg/dL AST (15-37) U/L ALT (12-78) U/L Alkaline Phosphatase (46-116) IU/L Troponin I High Sens (<=51) ng/L Total Protein (6.4-8.2) g/dL Albumin (3.4-5.0) g/dL TSH, Ultra Sensitive (0.358-3.740) mIU/mL Specimen Type [place] Urine Color Yellow Urine Appearance Clear Urine pH 6.5 (5.0-9.0) Ur Specific [place] <= 1.005 (1.005-1.030) Urine Protein Negative (NEGATIVE) mg/dL Urine Glucose (UA) Negative (NEGATIVE) mg/dL Urine Ketones Trace H (NEGATIVE) mg/dL Urine Occult Blood Moderate H (NEGATIVE) Urine Nitrite Positive H (NEGATIVE) Urine Bilirubin Negative (NEGATIVE) Urine Urobilinogen 0.2 (0.2-1.0) E.U./dL Ur Leukocyte Esterase Small H (NEGATIVE) Urine RBC 0-5 /HPF Urine WBC 5-10 H /HPF Ur Epithelial Cells Few /LPF Urine Bacteria Many H (NONE TO FEW) /HPF Urine Opiates Screen Negative (NEGATIVE) Ur Buprenorphine Scrn Negative (NEGATIVE) Ur Oxycodone Screen Negative (NEGATIVE) Ur EDDP (Meth Metab) Negative (NEGATIVE) Ur Barbiturates Screen Negative (NEGATIVE) Ur Tricyclics Screen Negative (NEGATIVE) Ur Amphetamine Screen Positive H (NEGATIVE) U Methamphetamines Scrn Positive H (NEGATIVE) Urine MDMA Screen Positive H (NEGATIVE) U Benzodiazepines Scrn Negative (NEGATIVE) U Cocaine Metab Screen Negative (NEGATIVE) U Marijuana (THC) Screen Negative (NEGATIVE) Ethyl Alcohol (0.000-0.080) g/dL Meds: Medications Generic Name Dose Route Start Last Admin Trade Name Freq PRN Reason Stop Dose Admin Potassium Bicarbonate 20 meq 06/27/21 04:00 06/27/21 08:05 Potassium Bicarbonate/Cit Ac 20 Meq Effervescent Tab PO 06/30/21 04:01 20 meq Q2HR SELVIN Administration Discontinued Medications Generic Name Dose Route Start Last Admin Trade Name Freq PRN Reason Stop Dose Admin Al Hydroxide/Mg Hydroxide 30 ml 06/27/21 02:41 06/27/21 02:56 Gi Cocktail Oral Solution 30 Ml PO 06/27/21 02:42 30 ml ONETIME ONE Administration Al Hydroxide/Mg Hydroxide Confirm 06/27/21 02:50 06/27/21 02:58 Gi Cocktail Oral Solution 30 Ml Administered 06/27/21 02:51 Not Given Dose 30 ml .ROUTE .STK-MED ONE Cephalexin 500 mg 06/27/21 03:33 06/27/21 04:10 Cephalexin 250 Mg Cap PO 06/27/21 03:34 500 mg ONETIME ONE Administration Cephalexin 500 mg 06/27/21 08:00 06/27/21 08:05 Cephalexin 250 Mg Cap PO 06/27/21 08:01 500 mg ONETIME ONE Administration Lorazepam 1 mg 06/27/21 02:35 06/27/21 02:56 Lorazepam 1 Mg Tab PO 06/27/21 02:36 1 mg ONETIME ONE Administration Magnesium Oxide 800 mg 06/27/21 04:11 06/27/21 04:16 Magnesium Oxide 400 Mg Tab PO 06/27/21 04:12 800 mg ONETIME ONE Administration - Re-Assessments/Exams Free Text/Narrative Re-Assessment/Exam: 06/27/21 02:49 Lorazepam 1mg PO Gi Cocktail EKG unremarkable. Labs drawn. 06/27/21 04:15 Laboratory evaluation within normal WBC, hemoglobin 13.5, platelet count 473. CMP with a potassium of 2.5 magnesium 1.8 glucose 122. Urinalysis trace ketones moderate blood nitrite positive U RBCs 05, U WBCs 510, urine bacteria many. Urine culture pending. Urine drug screen positive for amphetamines methamphetamines MDMA. The patient did deny illicit drug usage to myself although was honest with the nurse after the patient's daughter was not in the room. Keflex for the UTI Potassium chloride oral solution 20 mEq no and every 2 hours for a total of 3 doses. Troponin is normal at 15. Reviewing her [facility] chart she has had some STIs in the past. Chlamydia gonorrhea testing pending. She had a negative syphilis HIV and hepatitis panel in September of this year. The cause of her symptoms are most likely multifactorial to include the severe hypokalemia with a normal EKG. Dehydration most likely due to her methamphetamine and ecstasy abuse. As well as panic attack. She has much improved following the Ativan. We will recheck her potassium after multiple doses of oral potassium. The patient relates that she has been in recovery and has not used in the last 3 months but with her having to move out of her which she reports is her boyfriend's house although he calls her his that she relapsed and used methamphetamine yesterday. She was unaware that I had ecstasy. 06/27/21 09:02 Repeat potassium in the morning shows a potassium of 3.9. Patient rested well over the last couple of hours. She is completely asymptomatic. She has no chest pain or shortness of breath anxiety or carpopedal spasms as she did upon arrival. I discussed at length the importance of abstaining from polysubstance recreational drug usage and she should follow-up with her treatment counselor today. We will treat her urinary tract infection as well she needs to have her potassium rechecked in the next week in the primary care clinic. She should also consider pelvic exam with PCP. She is comfortable with this plan and her questions answered. Departure - Departure Time of Disposition: 08:56 Disposition: Home, Self-Care 01 Clinical Impression: Panic attack, Illicit drug use, Hypokalemia UTI (urinary tract infection) Qualifiers: Urinary tract infection type: site unspecified Hematuria presence: with hematuria Qualified Code(s): N39.0 - Urinary tract infection, site not specified - Discharge Information Prescriptions: cephALEXin [Cephalexin] 500 mg PO QID #28 capsule Potassium Chloride 20 meq PO DAILY #5 tab.er.prt Instructions: Panic Attack, [id number], Urinary Tract Infection, Adult, [id number], Supporting Someone With Substance Use Disorder, Methamphetamines Use Disorder Referrals: PCP,Unknown [Primary Care Provider] - Forms: ED Department Discharge Additional Instructions: Drink plenty of fluids over the next few days. STOP THE RECREATIONAL DRUG USAGE Cephalexin 1 tablet 4 times a day for 5 days. RX sent to [facility] your [facility] or [facility] for your anxiety and your recreation drug usage. Try to eat a banana a day to help with your potassium Potassium tablet 1 tablet daily for the next 5 days. RX sent to [email or web address]. Return to the ED if new or worsening symptoms. Follow up with PCP in a 5 days for recheck consider pelvic exam with wet prep at that time. Sepsis Event Note (ED) - Evaluation Sepsis Screening Result: No Definite Risk - Focused Exam Vital Signs: Vital Signs Temp Pulse Resp BP Pulse Ox 06/27/21 08:10 91 11 L 101/61 99 06/27/21 02:31 97.8 F 90 24 H 135/81 100 - My Orders Last 24 Hours: My Active Orders 06/27/21 02:44 EKG Documentation Completion [RC] ASDIRECTED EKG 12 Lead [EK] Stat 06/27/21 03:10 CULTURE URINE [RM] Stat 06/27/21 03:30 CHLAMYDIA AND GONORRHEA BY TMA Stat 06/27/21 04:00 Potassium Bicarbonate/Cit Ac [Effer-K] 20 meq PO Q2HR - Assessment/Plan Last 24 Hours: My Active Orders 06/27/21 02:44 EKG Documentation Completion [RC] ASDIRECTED EKG 12 Lead [EK] Stat 06/27/21 03:10 CULTURE URINE [RM] Stat 06/27/21 03:30 CHLAMYDIA AND GONORRHEA BY TMA Stat 06/27/21 04:00 Potassium Bicarbonate/Cit Ac [Effer-K] 20 meq PO Q2HR
[2021-06-27] MEDS ORDERED: GI Cocktail Oral Solution 30 ML ONE (02:50)
[2021-06-27 03:28] LABS: BARBITURATE SCREEN,URINE NEGATIVE (NEGATIVE); BENZODIAZEPINES SCREEN,URINE NEGATIVE (NEGATIVE); EDDP,URINE SCREEN NEGATIVE (NEGATIVE); TCA SCREEN,URINE NEGATIVE (NEGATIVE); THC SCREEN,URINE 50 NG/ML NEGATIVE (NEGATIVE)
--- NOTE | 2021-06-27 03:28 | PCM.EKG ---
#1 Interpretation EKG Date: 06/27/21 Time: 03:12 Rhythm: NSR Rate (Beats/Min): 83 [place]: Normal P-Wave: Present QRS: Normal ST-T: Normal QT: Normal Comparison: NA - No Prior EKG
[2021-06-27 03:29] LABS: BUPRENORPHINE SCREEN,URINE NEGATIVE (NEGATIVE)
[2021-06-27] MEDS ORDERED: Cephalexin 250 MG Cap PO ONE ×2 (03:33→08:00)
[2021-06-27 03:37] LABS: CHLORIDE,CL 101 mmol/L (98-107); SODIUM,NA 139 mmol/L (136-145)
[2021-06-27 03:48] LABS: ANION GAP 18.4 meq/L (7-15)
[2021-06-27] MEDS: Potassium Bicarbonate/Cit Ac 20 MEQ Effervescent Tab PO SCH ×3 (04:10→08:05)
[2021-06-27] MEDS ORDERED: Magnesium Oxide 400 MG Tab PO ONE (04:11)
[2021-06-27 08:52] VITALS: BP 101/61; PULSE 91
[2021-06-30 12:47] LABS: C.TRACHOMATIS BY TMA Negative (Negative); N.GONORRHOEAE BY TMA Negative (Negative)
== END 2021-06-27 09:40 | disposition home or self-care (01) ==
LOC: LL.ED 02:27
DX: F41.0 Panic disorder [episodic paroxysmal anxiety] (principal); E87.6 Hypokalemia; N39.0 Urinary tract infection, site not specified; R31.9 Hematuria, unspecified; F15.90 Other stimulant use, unspecified, uncomplicated; F12.90 Cannabis use, unspecified, uncomplicated; Z88.1 Allergy status to other antibiotic agents; Z88.2 Allergy status to sulfonamides
CPT/HCPCS: 36415; 80053; 80305; 80307; 81001; 83735; 84132; 84443; 84484; 85025; 87086; 87088; 87186; 87491; 87591; 93005; 99284; A9270

== ENCOUNTER 2023-03-17 14:02 | Emergency (ER) | payer OTHER, BC ==
[2023-03-17 14:12] VITALS: BP 116/78; PULSE 99
[2023-03-17 14:57] LABS: BASOPHILS ABSOLUTE AUTO 0.01 K/uL (0.00-0.20); BASOPHILS PERCENT AUTO 0.2 % (0.0-2.0); EOSINOPHILS ABSOLUTE AUTO 0.07 K/uL (0.00-0.50); EOSINOPHILS PERCENT AUTO 1.1 % (0.0-5.0); HEMATOCRIT 38.4 % (34.0-46.0); HEMOGLOBIN 12.5 g/dL (11.7-15.5); LYMPHOCYTES ABSOLUTE AUTO 1.96 K/uL (0.50-3.50); LYMPHOCYTES PERCENT AUTO 31.1 % (10.0-50.0); MEAN CORPUSCULAR HEMOGLOBIN 27.1 pg (28.2-33.3); MEAN CORPUSCULAR HGB CONC 32.6 g/dL (31.7-36.0); MEAN CORPUSCULAR VOLUME 83.3 fL (84.0-98.0); MONOCYTES ABSOLUTE AUTO 0.64 K/uL (0.00-1.00); MONOCYTES PERCENT AUTO 10.1 % (2.0-14.0); NEUTROPHILS ABSOLUTE AUTO 3.63 K/uL (1.40-7.00); NEUTROPHILS PERCENT AUTO 57.5 % (45.0-80.0); PLATELET COUNT,PLT 309 K/uL (150-350); RED BLOOD CELL COUNT 4.61 M/uL (3.77-5.09); RED CELL DISTRIBUTION WIDTH 14.3 % (11.2-14.1); WHITE BLOOD CELL COUNT,WBC 6.3 K/uL (4.0-10.2)
[2023-03-17 15:16] LABS: ALBUMIN 3.4 g/dL (3.4-5.0); BILIRUBIN TOTAL 0.5 mg/dL (0.2-1.0); CALCIUM 8.7 mg/dL (8.5-10.1); CARBON DIOXIDE,CO2 29.4 mmol/L (21.0-32.0); CREATININE 0.94 mg/dL (0.51-1.17); EST CRCL DRUG DOSING (CG) 75.22 mL/min; POTASSIUM,K 3.3 mmol/L (3.5-5.1); PROTEIN TOTAL,TP 6.8 g/dL (6.4-8.2)
[2023-03-17 15:18] LABS: ANION GAP 10.9 meq/L (7-15)
[2023-03-17] MEDS ORDERED: Ketorolac 30 MG/ML SDV IM ONE (15:36)
[2023-03-17 15:43] LABS: APPEARANCE,URINE CLEAR; BILIRUBIN,URINE NEGATIVE (NEGATIVE); COLOR,URINE DARK YELLOW; GLUCOSE,URINE NEGATIVE (NEGATIVE); KETONES,URINE NEGATIVE (NEGATIVE); LEUKOCYTE ESTERASE,URINE TRACE (NEGATIVE); NITRITE,URINE NEGATIVE (NEGATIVE); OCCULT BLOOD,URINE NEGATIVE (NEGATIVE); PH,URINE 5.5 (5.0-9.0); PROTEIN,URINE NEGATIVE (NEGATIVE); UROBILINOGEN,URINE 0.2 E.U./dL (0.2-1.0)
[2023-03-17 15:53] LABS: BACTERIA,URINE FEW /HPF (NONE TO FEW); MUCUS,URINE MANY /LPF (NEGATIVE); RBC,URINE 0-5 /HPF; YEAST,URINE RARE /HPF (NEGATIVE)
[2023-03-17 15:55] LABS: EPITHELIAL CELLS,URINE MANY /LPF
[2023-03-17 15:58] LABS: AMPHETAMINES SCREEN, URINE POSITIVE (NEGATIVE); BARBITURATE SCREEN,URINE NEGATIVE (NEGATIVE); BENZODIAZEPINES SCREEN,URINE NEGATIVE (NEGATIVE); BUPRENORPHINE SCREEN,URINE NEGATIVE (NEGATIVE); COCAINE METABOLITES,URINE NEGATIVE (NEGATIVE); EDDP,URINE SCREEN NEGATIVE (NEGATIVE); METHAMPHETAMINES SCREEN, URINE POSITIVE (NEGATIVE); OXYCODONE SCREEN,URINE NEGATIVE (NEGATIVE); TCA SCREEN,URINE NEGATIVE (NEGATIVE); THC SCREEN,URINE 50 NG/ML NEGATIVE (NEGATIVE)
[2023-03-17] MEDS ORDERED: Potassium Chloride 20 MEQ Tab.ER PO ONE (16:49)
== END 2023-03-17 17:11 | disposition home or self-care (01) ==
LOC: LL.ED 14:02
DX: M54.2 Cervicalgia (principal); I10 Essential (primary) hypertension; K21.9 Gastro-esophageal reflux disease without esophagitis; Z88.2 Allergy status to sulfonamides; Z88.5 Allergy status to narcotic agent; Z88.8 Allergy status to other drugs, medicaments and biological substances; V89.2XXA Person injured in unspecified motor-vehicle accident, traffic, initial encounter; Y92.410 Unspecified street and highway as the place of occurrence of the external cause
CPT/HCPCS: 36415; 71045; 72040; 73562-50; 73600-50; 80053; 80305-QW; 81001; 85025; 87086; 96372; 99284; A9270-GY; J1885